=== PATIENT | female | born 1995 | race Caucasian/White ===

== ENCOUNTER 2018-07-25 22:38 | Emergency (ER) | payer OTHER ==
[~2018-07-25] VITALS: Ht 175.3 cm; Wt 86.6 kg
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
[2018-07-25] MEDS ORDERED: LACTATED RINGERS 1,000 ML IV ONE (22:54)
[2018-07-25] MEDS ORDERED: ONDANSETRON 4 MG/2 ML (SDV) Z0FRAN IVP ONE (23:00)
[2018-07-25 23:25] LABS: BASOPHILS % (AUTO) 0 % (0-10); EOSINOPHILS % (AUTO) 1 % (0-10); HEMATOCRIT 36 % (35-52); HEMOGLOBIN 12.8 G/DL (11.5-16.0); LYMPHOCYTES % (AUTO) 22 % (12-44); MEAN CORPUSCULAR HEMOGLOBIN 30 PG (25-34); MEAN CORPUSCULAR HGB CONC 35 G/DL (32-36); MEAN CORPUSCULAR VOLUME 86 FL (80-99); MEAN PLATELET VOLUME 9.4 FL (7.4-10.4); MONOCYTES % (AUTO) 7 % (0-12); NEUTROPHILS % (AUTO) 70 % (42-75); PLATELET COUNT 297 10^3/uL (130-400); RED CELL DISTRIBUTION WIDTH 12.7 % (10.0-14.5); WHITE BLOOD COUNT 12.2 10^3/uL (4.3-11.0)
[2018-07-25 23:26] LABS: EOSINOPHILS # (AUTO) 0.1 10^3/uL (0.0-0.3); LYMPHOCYTES # (AUTO) 2.7 X 10^3 (1.0-4.0); MONOCYTES # (AUTO) 0.8 X 10^3 (0.0-1.0); NEUTROPHILS # (AUTO) 8.5 X 10^3 (1.8-7.8)
--- NOTE | 2018-07-25 23:36 | ED Abdominal Pain ---
General Chief Complaint: Abdominal/GI Problems Stated Complaint: STOMACH PAIN--18 WEEKS Nursing Triage Note: Pt arrived by private vehicle with significant other with chief complaint of abdominal pain. Pt stated that it started 2 days ago. Pain was epigastric pain (middle upper quadrant). Pt has vomiting, nausea with no diarrhea. Pt stated she had been on her feet all day at work ([employer] Pt is 18 weeks . Sepsis Screen: No Definite Risk Source of Information: Patient History of Present Illness Date Seen by Provider: Jul 25, 2018 Time Seen by Provider: 22:45 Initial Comments 23-year-old female presents with some epigastric crampingpain for about 2 days. She also has some nausea and vomiting. She is passing 18 weeks . Reports that she is having a hard time keeping anything down. She denies any diarrhea, fevers, chills or other systemic complaints. She does not have a vaginal playing, abnormal vaginal bleeding or discomfort. Allergies and Home Medications Allergies Coded Allergies: No Known Drug Allergies (Unverified , 07/25/18) Patient Home Medication List Home Medication List Reviewed: Yes Review of Systems Review of Systems Constitutional: No chills, No fever EENTM: No Symptoms Reported Respiratory: No Symptoms Reported; Denies Cough Cardiovascular: Denies Chest Pain Gastrointestinal: Abdominal Pain (epigastric ), Nausea, Vomiting Genitourinary: See HPI Musculoskeletal: see HPI Skin: see HPI Psychiatric/Neurological: See HPI Endocrine: See HPI Past Ddsgrxi-Qrkaxw-Zqbien Hx Past Med/Social Hx: Reviewed Nursing Past Med/Soc Hx Patient Social History Alcohol Use: Denies Use Recreational Drug Use: No Smoking Status: Never a Smoker 2nd Hand Smoke Exposure: No Recent Foreign Travel: No Contact w/Someone Who Travel: No Recent Infectious Disease Expo: No Recent Hopitalizations: No Physical Abuse: No Sexual Abuse: No Mistreated: No Fear: No Seasonal Allergies Seasonal Allergies: No Past Medical History Surgeries: No Respiratory: Yes Asthma Cardiac: No Neurological: No Last Menstrual Period: Mar 25, 2018 Genitourinary: No Gastrointestinal: No Musculoskeletal: No Endocrine: No HEENT: No Cancer: No Psychosocial: No Integumentary: No Blood Disorders: No Physical Exam Vital Signs Vital Signs - First Documented 07/25/18 22:57 Temp 98.2 Pulse 87 Resp 16 B/P (MAP) 138/79 (98) Pulse Ox 98 O2 Delivery Room Air Capillary Refill : Less Than 3 Seconds Height/Weight/BMI Height: 5'9.00" Weight: 191lbs. 0oz. 86.759630dk; BMI Method:Stated General Appearance: WD/WN, no apparent distress HEENT: PERRL/EOMI Neck: non-tender, full range of motion, supple Respiratory: chest non-tender Cardiovascular: regular rate, rhythm, no edema Gastrointestinal: soft; No distended, No guarding, No rebound; tenderness ( mild epigastric ) Extremities: normal range of motion, non-tender Neurologic/Psychiatric: window draper II-XII nml as tested, alert, oriented x 3 Progress/Results/Core Measures Results/Orders Lab Results Laboratory Tests Test 07/25/18 22:54 Range/Units White Blood Count 12.2 H 4.3-11.0 10^3/uL Red Blood Count 4.23 L 4.35-5.85 10^6/uL Hemoglobin 12.8 11.5-16.0 G/DL Hematocrit 36 35-52 % Mean Corpuscular Volume 86 80-99 FL Mean Corpuscular Hemoglobin 30 25-34 PG Mean Corpuscular Hemoglobin Concent 35 32-36 G/DL Red Cell Distribution Width 12.7 10.0-14.5 % Platelet Count 297 130-400 10^3/uL Mean Platelet Volume 9.4 7.4-10.4 FL Neutrophils (%) (Auto) 70 42-75 % Lymphocytes (%) (Auto) 22 12-44 % Monocytes (%) (Auto) 7 0-12 % Eosinophils (%) (Auto) 1 0-10 % Basophils (%) (Auto) 0 0-10 % Neutrophils # (Auto) 8.5 H 1.8-7.8 X 10^3 Lymphocytes # (Auto) 2.7 1.0-4.0 X 10^3 Monocytes # (Auto) 0.8 0.0-1.0 X 10^3 Eosinophils # (Auto) 0.1 0.0-0.3 10^3/uL Basophils # (Auto) 0.0 0.0-0.1 10^3/uL Sodium Level 137 135-145 MMOL/L Potassium Level 3.8 3.6-5.0 MMOL/L Chloride Level 102 98-107 MMOL/L Carbon Dioxide Level 24 21-32 MMOL/L Anion Gap 11 5-14 MMOL/L Blood Urea Nitrogen 7 7-18 MG/DL Creatinine 0.52 L 0.60-1.30 MG/DL Estimat Glomerular Filtration Rate > 60 BUN/Creatinine Ratio 13 Glucose Level 102 70-105 MG/DL Calcium Level 9.7 8.5-10.1 MG/DL Corrected Calcium 9.5 8.5-10.1 MG/DL Total Bilirubin 0.2 0.1-1.0 MG/DL Aspartate Amino Transf (AST/SGOT) 19 5-34 U/L Alanine Aminotransferase (ALT/SGPT) 13 0-55 U/L Alkaline Phosphatase 37 L 40-136 U/L Total Protein 7.4 6.4-8.2 GM/DL Albumin 4.3 3.2-4.5 GM/DL Lipase 43 8-78 U/L My Orders Orders - KIRA JAMES DO Comprehensive Metabolic Panel (07/25/18 22:54) Lipase (07/25/18 22:54) Saline Lock/Iv-Start (07/25/18 22:54) Cbc With Automated Diff (07/25/18 22:54) Lactated Ringers (Lr 1000 Ml Iv Solution (07/25/18 22:54) Ondansetron Injection (Zofran Injectio (07/25/18 23:00) Ua Culture If Indicated (07/25/18 23:58) Medications Given in ED Current Medications Medications Dose Ordered Sig/Eddie Route Start Time Stop Time Status Last Admin Dose Admin Lactated Ringer's 1,000 ml @ 0 mls/hr Q0M ONCE IV 07/25/18 22:54 07/25/18 22:57 DC 07/25/18 23:04 1,000 MLS/HR Ondansetron HCl 4 mg ONCE ONCE IVP 07/25/18 23:00 07/25/18 23:01 DC 07/25/18 23:04 4 MG Vital Signs/I&O 07/25/18 22:57 Temp 98.2 Pulse 87 Resp 16 B/P (MAP) 138/79 (98) Pulse Ox 98 O2 Delivery Room Air Blood Pressure Mean: 98 Progress Progress Note : Progress Note Patient is much improved following her fluids and Zofran. She denies having emesis while here in the ER. I will discharge her home with some Zofran. I recommend she follow up with her OB next week if symptoms do not improve. Patient discharged home in stable condition. Departure Impression Primary Impression: Nausea and vomiting Qualified Codes: R11.2 - Nausea with vomiting, unspecified Additional Impression: 18 weeks gestation of Disposition: HOME, SELF-CARE Condition: Stable Departure-Patient Inst. Referrals: ALONZO HERNANDEZ MD (PCP) Primary Care Physician Patient Instructions: Nausea and Vomiting of (DC) Scripts Ondansetron (Ondansetron Odt) 4 Mg Tab.rapdis 4 MG PO Q8H PRN for NAUSEA/VOMITING, #20 TAB Prov: KIRA JAMES DO 07/26/18 KIRA JAMES DO Jul 25, 2018 23:36
[2018-07-25 23:42] LABS: BUN/CREATININE RATIO 13; CALCIUM 9.7 MG/DL (8.5-10.1); CARBON DIOXIDE 24 MMOL/L (21-32); CHLORIDE 102 MMOL/L (98-107); CREATININE SERUM 0.52 MG/DL (0.60-1.30); GFR ESTIMATED > 60; GLUCOSE 102 MG/DL (70-105); POTASSIUM 3.8 MMOL/L (3.6-5.0); SODIUM 137 MMOL/L (135-145)
[2018-07-25 23:43] LABS: ALANINE AMINOTRANSFERASE 13 U/L (0-55); ALBUMIN 4.3 GM/DL (3.2-4.5); ALKALINE PHOSPHATASE 37 U/L (40-136); BILIRUBIN,TOTAL 0.2 MG/DL (0.1-1.0); LIPASE 43 U/L (8-78); TOTAL PROTEIN 7.4 GM/DL (6.4-8.2)
[2018-07-26 00:03] LABS: CLARITY,URINE CLEAR; COLOR,URINE YELLOW; PH,URINE 6.5 (5-9)
[2018-07-26 00:04] LABS: BILIRUBIN,URINE NEGATIVE (NEGATIVE); GLUCOSE, URINE (UA) NEGATIVE (NEGATIVE); KETONES,URINE NEGATIVE (NEGATIVE); LEUKOCYTE ESTERASE ,URINE TRACE (NEGATIVE); NITRITE,URINE NEGATIVE (NEGATIVE); PROTEIN,URINE NEGATIVE (NEGATIVE); UROBILINOGEN,URINE 0.2 MG/DL (NORMAL)
[2018-07-26] MEDS ORDERED: ONDA4TAB11 PO (00:04)
[2018-07-26 00:05] LABS: BACTERIA,URINE TRACE /HPF
[2018-07-26 00:24] VITALS: BP 119/71
== END 2018-07-26 00:24 | disposition home or self-care (01) ==
LOC: ER FS 22:45
DX: O21.9 Vomiting of pregnancy, unspecified (principal); O99.512 Diseases of the respiratory system complicating pregnancy, second trimester; J45.909 Unspecified asthma, uncomplicated; Z3A.18 18 weeks gestation of pregnancy
CPT/HCPCS: 36415; 80053; 81000; 83690; 85025

== ENCOUNTER → 2018-08-12 | Outpatient (CLI) | payer MEDICAID ==
[~2018-08-12] MED LIST: ONDA4TAB11 PO
--- NOTE | 2018-08-12 11:59 | Diagnostic Imaging Report ---
INDICATION: survey. TECHNIQUE: Multiple real-time grayscale images were obtained over the gravid uterus. COMPARISON: None FINDINGS: There is a single live fetus in a cephalic presentation. heart rate was recorded at 160 beats per minute. Placenta is anterior. Amniotic fluid volume is normal. Cervical length is 3.8 cm. survey demonstrates kidneys, bladder, and stomach to be unremarkable. The brain is unremarkable. There is a three-vessel cord. The insertion is limited in evaluation due to position. spine is unremarkable. Four-chamber heart view is somewhat limited due to position. Biometrical measurements are as follows: Biparietal 4.60 cm, age 20 weeks 0 days. Head circumference 18.07 cm, age 20 weeks 4 days. Abdominal circumference 14.39 cm, age 19 weeks 6 days. Femur length 3.32 cm, age 20 weeks 3 days. Sonographic estimate age: 20 weeks 2 days. Sonographic estimated date of delivery: 12/28/2018. Estimated Weight: 330 gm (+/- 48 gm). LMP percentile: 50%. heart rate: 160 beats per minute. number: 1 of 1. IMPRESSION: Single live IUP at 20 weeks 2 days gestational age. The estimated date of confinement sonographically is 12/28/2018. survey is unremarkable, although the cord insertion and four-chamber heart views are limited due to position and followup could be performed. Dictated by: Dictated on workstation # [id number]
== END ==
LOC: RAD 09:58
PROVIDERS: ATTEND Obstetrics & Gynecology
DX: Z36.89 Encounter for other specified antenatal screening (principal); Z3A.20 20 weeks gestation of pregnancy
CPT/HCPCS: 76805

== ENCOUNTER → 2018-10-21 | Outpatient (CLI) | payer MEDICAID ==
--- NOTE | 2018-10-21 16:39 | Diagnostic Imaging Report ---
INDICATION: Assessment during normal . Incomplete imaging of the anatomy on prior imaging. TECHNIQUE: Multiple, limited real-time grayscale images were obtained over the gravid uterus. COMPARISON: 08/12/2018 FINDINGS: Single viable intrauterine currently in cephalic presentation. Normal amount of amniotic fluid appears to be present, index 16.39 cm. Placenta anterior without evidence for previa. The four-chamber heart and cord insertion site are visualized at this followup study appearing unremarkable. Biometrical measurements were not performed on this study. heart rate: 152 beats per minute. number: 1 of 1. IMPRESSION: 1. Single viable intrauterine , currently in cephalic presentation. Followup imaging of the cardiac structures and cord insertion site have an unremarkable appearance. Dictated by: Dictated on workstation # [id number]
== END ==
LOC: RAD 14:02
PROVIDERS: ATTEND Obstetrics & Gynecology
DX: Z36.89 Encounter for other specified antenatal screening (principal); Z3A.00 Weeks of gestation of pregnancy not specified
CPT/HCPCS: 76816

== ENCOUNTER 2018-10-30 05:00 | Emergency (ER) | payer MEDICAID ==
[~2018-10-30] VITALS: Ht 172.7 cm; Wt 97.1 kg
--- OUTSIDE RECORDS SUMMARY | 2018-10-30 05:26 | XMS REPORT | Continuity of Care Document ---
Demographics Preferred Language Unknown Marital Status Unknown Muslim Affiliation Unknown Race Unknown Ethnic Group Unknown Author Organization Unknown Address Unknown Allergies Active Description Code Type Severity Reaction Onset Reported/Identified Relationship to Patient Clinical Status Yes No Known Drug Allergies [id number] Drug Allergy Unknown N/A 07/25/2018 Medications There is no data. Problems Date [...] RX) 08/12/2011 V25.49 CONTRACEPTION SURVEILLANCE (REPEAT RX) 07/26/2018 JAMES DO, KIRA L Ot J45.909 UNSPECIFIED ASTHMA, UNCOMPLICATED 07/26/2018 JAMES DO, KIRA L Ot O21.9 VOMITING OF , UNSPECIFIED 07/26/2018 JAMES DO, KIRA L Ot O26.892 OTH RELATED CONDITIONS, SECOND 07/26/2018 JAMES DO, KIRA L Ot O99.512 DISEASES OF THE RESP SYS COMP , 07/26/2018 JAMES DO, KIRA L Ot Z3A.18 18 WEEKS GESTATION OF 07/27/2018 JAMES DO, KIRA L Ot J45.909 UNSPECIFIED ASTHMA, UNCOMPLICATED 07/27/2018 JAMES DO, KIRA L Ot O21.9 VOMITING OF , UNSPECIFIED 07/27/2018 JAMES DO, KIRA L Ot O26.892 OTH RELATED CONDITIONS, SECOND 07/27/2018 JAMES DODAMARISKIRA L Ot O99.512 DISEASES OF THE RESP SYS COMP , 07/27/2018 JAMES DOMICHELLER L Ot Z3A.18 18 WEEKS GESTATION OF 08/14/2018 DESAI DO, KAUSHAL C Ot Z36.89 ENCOUNTER FOR OTHER SPECIFIED 08/14/2018 DESAI DO, KAUSHAL C Ot Z3A.20 20 WEEKS GESTATION OF 09/21/2018 DESAI DO, KAUSHAL C Ot Z36.89 ENCOUNTER FOR OTHER SPECIFIED 09/21/2018 DESAI DO, KAUSHAL C Ot Z3A.20 20 WEEKS GESTATION OF 10/22/2018 DESAI DO, KAUSHAL C Ot Z36.89 ENCOUNTER FOR OTHER SPECIFIED 10/22/2018 DESAI DO, KAUSHAL C Ot Z3A.00 WEEKS OF GESTATION OF NOT SPEC 10/26/2018 DESAI DO, KAUSHAL C Ot Z36.89 ENCOUNTER FOR OTHER SPECIFIED 10/26/2018 DESAI DO, KAUSHAL C Ot Z3A.00 WEEKS OF GESTATION OF NOT SPEC Procedures Code Description [place] [address] URINE TEST (IN-HOUSE) 04/27/2012 22265 THERAPUTIC INJ SQ/IM 04/27/2012 J1055 DEPO-PROVERA INJ 150 MG 04/27/2012 07038 URINE TEST (IN-HOUSE) 07/14/2012 J1055 DEPO-PROVERA INJ 150 MG 07/14/2012 42346 THERAPUTIC INJ SQ/IM 07/14/2012 Results Test Result Range Complete urinalysis with reflex to culture - 07/25/18 22:50 Urine color determination YELLOW NRG Urine clarity determination CLEAR NRG Urine pH measurement by test strip 6.5 5-9 Specific gravity of urine by test strip 1.010 1.016-1.022 Urine protein assay by test strip, semi-quantitative NEGATIVE NEGATIVE Urine glucose detection by automated test strip NEGATIVE NEGATIVE Erythrocytes detection in urine sediment by light microscopy NEGATIVE NEGATIVE Urine ketones detection by automated test strip NEGATIVE NEGATIVE Urine nitrite detection by test strip NEGATIVE NEGATIVE Urine total bilirubin detection by test strip NEGATIVE NEGATIVE Urine urobilinogen measurement by automated test strip (mass/volume) 0.2 mg/dL NORMAL Urine leukocyte esterase detection by dipstick TRACE NEGATIVE Automated urine sediment erythrocyte count by microscopy (number/high power field) NONE NRG Automated urine sediment leukocyte count by microscopy (number/high power field) [HPF] NRG Bacteria detection in urine sediment by light microscopy TRACE NRG Squamous epithelial cells detection in urine sediment by light microscopy 10-25 NRG Crystals detection in urine sediment by light microscopy NONE NRG Casts detection in urine sediment by light microscopy NONE NRG Mucus detection in urine sediment by light microscopy NEGATIVE NRG Complete urinalysis with reflex to culture NO NRG Complete blood count (CBC) with automated white blood cell (WBC) differential - 07/25/18 22:54 Blood leukocytes automated count (number/volume) 12.2 10*3/uL 4.3-11.0 Blood erythrocytes automated count (number/volume) 4.23 10*6/uL 4.35-5.85 Venous blood hemoglobin measurement (mass/volume) 12.8 g/dL 11.5-16.0 Blood hematocrit (volume fraction) 36 % 35-52 Automated erythrocyte mean corpuscular volume 86 [foz_us] 80-99 Automated erythrocyte mean corpuscular hemoglobin (mass per erythrocyte) 30 pg 25-34 Automated erythrocyte mean corpuscular hemoglobin concentration measurement (mass/volume) 35 g/dL 32-36 Automated erythrocyte distribution width ratio 12.7 % 10.0- 14.5 Automated blood platelet count (count/volume) 297 10*3/uL 130-400 Automated blood platelet mean volume measurement 9.4 [foz_us] 7.4-10.4 Automated blood neutrophils/100 leukocytes 70 % 42-75 Automated blood lymphocytes/100 leukocytes 22 % 12-44 Blood monocytes/100 leukocytes 7 % 0-12 Automated blood eosinophils/100 leukocytes 1 % 0-10 Automated blood basophils/100 leukocytes 0 % 0-10 Blood neutrophils automated count (number/volume) 8.5 10*3 1.8-7.8 Blood lymphocytes automated count (number/volume) 2.7 10*3 1.0-4.0 Blood monocytes automated count (number/volume) 0.8 10*3 0.0- 1.0 Automated eosinophil count 0.1 10*3/uL 0.0-0.3 Automated blood basophil count (count/volume) 0.0 10*3/uL 0.0-0.1 Comprehensive metabolic panel - 07/25/18 22:54 Serum or plasma sodium measurement (moles/volume) 137 mmol/L 135-145 Serum or plasma potassium measurement (moles/volume) 3.8 mmol/L 3.6-5.0 Serum or plasma chloride measurement (moles/volume) 102 mmol/L 98-107 Carbon dioxide 24 mmol/L 21-32 Serum or plasma anion gap determination (moles/volume) 11 mmol/L 5-14 Serum or plasma urea nitrogen measurement (mass/volume) 7 mg/dL 7-18 Serum or plasma creatinine measurement (mass/volume) 0.52 mg/dL 0.60-1.30 Serum or plasma urea nitrogen/creatinine mass ratio 13 NRG Serum or plasma creatinine measurement with calculation of estimated glomerular filtration rate > NRG Serum or plasma glucose measurement (mass/volume) 102 mg/dL 70-105 Serum or plasma calcium measurement (mass/volume) 9.7 mg/dL 8.5-10.1 Serum or plasma total bilirubin measurement (mass/volume) 0.2 mg/dL 0.1-1.0 Serum or plasma alkaline phosphatase measurement (enzymatic activity/volume) 37 U/L 40-136 Serum or plasma aspartate aminotransferase measurement (enzymatic activity/volume) 19 U/L 5-34 Serum or plasma alanine aminotransferase measurement (enzymatic activity/volume) 13 U/L 0-55 Serum or plasma protein measurement (mass/volume) 7.4 g/dL 6.4-8.2 Serum or plasma albumin measurement (mass/volume) 4.3 g/dL 3.2-4.5 CALCIUM CORRECTED 9.5 mg/dL 8.5-10.1 Lipase - 07/25/18 22:54 Lipase 43 U/L 8-78 Encounters ACCT No. Visit Date/Time Discharge Status Pt. Type Provider Facility Loc./Unit Complaint [id number] 07/14/2012 16:16:00 07/14/2012 23:59:59 CLS Outpatient [id number] 04/27/2012 07:59:00 04/27/2012 23:59:59 CLS Outpatient [id number] 10/21/2018 14:02:00 10/21/2018 23:59:59 CLS Outpatient KAUSHAL DESAI DO [facility] RAD EVALUATE ANATOMY NOT SEEN ON PRIOR SONOGRAM [id number] 08/12/2018 09:58:00 08/12/2018 23:59:59 CLS Outpatient KAUSHAL DESAI DO [facility] RAD FETUS PRESENT IN SECOND TRIMESTER [id number] 07/25/2018 22:45:00 07/26/2018 00:24:00 DIS Emergency KIRA JAMES DO [facility] ER FS STOMACH PAIN--18 WEEKS
--- OUTSIDE RECORDS SUMMARY | 2018-10-30 05:26 | XMS REPORT ---
Author Author Migration, Doctor Organization [facility] Address Unknown Phone Unavailable Care Team Providers Care Sailing Officer Name Role Phone Migration, Doctor Unavailable Unavailable PROBLEMS Type Condition ICD9-CM Code ZQN68-CQ Code Onset Dates Condition Status SNOMED Code Problem Surveillance of other previously prescribed contraceptive method V25.49 Active 648591958 Problem Abdominal pain, other specified site 789.09 Active 20312140 ALLERGIES No Information ENCOUNTERS Encounter Location Date Diagnosis [facility] [id number] [place] [phone] Aug, [facility] [id number] [place] [phone] Aug, [facility] [id number] [place] [phone] Jun, [facility] [id number] [place] [phone] Apr, [facility] [id number] [place] [phone] Apr, [facility] [id number] [place] [address] Jan, [facility] [id number] [place] [phone] Oct, [facility] [id number] [place] [phone] Jul, [facility] [id number] [place] [phone] Jun, [facility] [id number], [place] [address] Nov, IMMUNIZATIONS No Known Immunizations SOCIAL HISTORY Never Assessed REASON FOR VISIT EMR-[facility] PLAN OF CARE VITAL SIGNS MEDICATIONS Medication Instructions Dosage Frequency Start Date End Date Duration Status Ibuprofen 600 mg take 1 tablet (600 mg) by oral route 3 times per day with food Jun, Active RESULTS No Results PROCEDURES No Known procedures INSTRUCTIONS MEDICATIONS ADMINISTERED No Known Medications
--- OUTSIDE RECORDS SUMMARY | 2018-10-30 05:26 | XMS REPORT ---
Author Author Migration, Doctor Organization [facility] Address Unknown Phone Unavailable Care Team Providers Care Macroeconomics Professor Name Role Phone Migration, Doctor Unavailable Unavailable PROBLEMS Type Condition ICD9-CM Code [id number] Code Onset Dates Condition Status SNOMED Code Problem Surveillance of other previously prescribed contraceptive method V25.49 Active 101593814 Problem Abdominal pain, other specified site 789.09 Active 49194046 ALLERGIES No Information ENCOUNTERS Encounter Location Date Diagnosis [facility] [id number] [place] [phone] Aug, [facility] [id number] [place] [phone] Aug, [facility] [id number] [place] [phone] Jun, [facility] [id number] [place] [phone] Apr, [facility] [id number] [place] [phone] Apr, [facility] [address] [address] Jan, [facility] [id number] [place] [phone] Oct, [facility] [id number] [place] [phone] Jul, [facility] [id number] [place] [phone] Jun, [facility] [id number] [address] Nov, IMMUNIZATIONS No Known Immunizations SOCIAL HISTORY Never Assessed REASON FOR VISIT [place] [place] PLAN OF CARE VITAL SIGNS MEDICATIONS Unknown Medications RESULTS No Results PROCEDURES No Known procedures INSTRUCTIONS MEDICATIONS ADMINISTERED No Known Medications
--- NOTE | 2018-10-30 05:28 | ED GU-Female ---
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 Patient states that her stomach does get tight and it radiates to her back at times. Patient is unable to tell a specific amount of time between contractions. Patient rates her pain at a 7. Nursing Sepsis Screen: No Definite Risk Source: patient, family, RN notes reviewed Exam Limitations: no limitations History of Present Illness Date Seen by Provider: Oct 30, 2018 Time Seen by Provider: 05:15 Initial Comments Patient presents c/ c/o worsening intermittent pelvic pressure/pain x 2 days. States she is 31 weeks, 2 days . . OB is [facility] in [place]. No discharge, or bleeding. Rates her pain 7/10. Timing/Duration: other (for 2 days) Severity/Quality: moderate (7/10) Location: vaginal Radiation: back Activities at Onset: none Prior Genitourinary Problems: none Modifying Factors: Improves With Other (none) Associated Symptoms: denies symptoms (x/ as noted.) Allergies and Home Medications Allergies Coded Allergies: No Known Drug Allergies (Unverified , 07/25/18) Home Medications Ondansetron 4 Mg Tab.rapdis, 4 MG PO Q8H PRN for NAUSEA/VOMITING Prescribed by: KIRA JAMES on 07/26/18 0004 Patient Home Medication List Home Medication List Reviewed: Yes Review of Systems Review of Systems Constitutional: see HPI Genitourinary: other (pelvic pain/pressure) : Yes All Other Systemes Reviewed Negative Unless Noted: Yes (Negative excepted noted.) Past Ubshwid-Qxwrlr-Cguhhm Hx Patient Social History Alcohol Use: Denies Use Recreational Drug Use: No Smoking Status: Never a Smoker 2nd Hand Smoke Exposure: No Recent Foreign Travel: No Contact w/Someone Who Travel: No Recent Infectious Disease Expo: No Recent Hopitalizations: No Physical Abuse: No Sexual Abuse: No Mistreated: No Fear: No Seasonal Allergies Seasonal Allergies: No Past Medical History Surgeries: No Respiratory: Yes Asthma Cardiac: No Neurological: No Genitourinary: No Gastrointestinal: No Musculoskeletal: No Endocrine: No HEENT: No Cancer: No Psychosocial: No Integumentary: No Blood Disorders: No Physical Exam Vital Signs Vital Signs - First Documented 10/30/18 05:05 Temp 97.8 Pulse 92 Resp 20 B/P (MAP) 137/85 (102) Pulse Ox 97 O2 Delivery Room Air Capillary Refill : Less Than 3 Seconds Height, Weight, BMI Height: 5'8.00" Weight: 214lbs. 0oz. 97.202917sm; BMI Method:Stated General Appearance: WD/WN, obese Cardiovascular: regular rate, rhythm Respiratory: no respiratory distress Pelvic: normal external exam; No discharge, No vaginal bleeding; other (Cervix on inspection is high, thick, and closed. No discharge or blood noted. No signs of impending delivery. ) Neurologic/Psychiatric: no motor/sensory deficits, alert, oriented x 3, depressed affect Skin: warm/dry Progress/Results/Core Measures Suspected Sepsis Recent Fever Within 48 Hours: No Infection Criteria Present: None New/Unexplained Altered Menta: No Sepsis Screen: No Definite Risk SIRS Temperature:97.8 Pulse: 92 Respiratory Rate: 20 Blood Pressure 137 /85 Mean: 102 Results/Orders Lab Results Laboratory Tests Test 10/30/18 05:06 Range/Units Urine Color YELLOW Urine Clarity CLEAR Urine pH 7.5 5-9 Urine Specific [place] 1.010 L 1.016-1.022 Urine Protein NEGATIVE NEGATIVE Urine Glucose (UA) NEGATIVE NEGATIVE Urine Ketones NEGATIVE NEGATIVE Urine Nitrite NEGATIVE NEGATIVE Urine Bilirubin NEGATIVE NEGATIVE Urine Urobilinogen 0.2 NORMAL MG/DL Urine Leukocyte Esterase TRACE H NEGATIVE Urine RBC (Auto) NEGATIVE NEGATIVE Urine RBC RARE /HPF Urine WBC 10-25 H /HPF Urine Squamous Epithelial Cells 10-25 H /HPF Urine Crystals NONE /LPF Urine Bacteria FEW H /HPF Urine Casts NONE /LPF Urine Mucus NEGATIVE /LPF Urine Culture Indicated YES My Orders Orders - JANICE GOMEZ DO Ua Culture If Indicated (10/30/18 05:04) Urine Culture (10/30/18 05:06) Vital Signs/I&O 10/30/18 05:05 Temp 97.8 Pulse 92 Resp 20 B/P (MAP) 137/85 (102) Pulse Ox 97 O2 Delivery Room Air Capillary Refill : Less Than 3 Seconds Blood Pressure Mean: 102 Progress Note : Progress Note Discussed patient c/ Dr. Hernandez, OB health and physical education teacher @ [facility]. Recommended discharging the patient and have her come down to [place] to be further evaluated in the OB department. Has a ride. Departure Impression Primary Impression: with 31 to 32 completed weeks gestation Additional Impressions: UTI (urinary tract infection) Suspected Frederick Issa Disposition: 01 HOME, SELF-CARE Condition: Stable Departure-Patient Inst. Decision time for Depature: 05:52 Referrals: ALONZO HERNANDEZ MD (PCP/Family) Primary Care Physician Add. Discharge Instructions: All discharge instructions reviewed with patient and/or family. Voiced understanding. RECOMMEND PROCEEDING DOWN TO [facility] TO THE OB DEPARTMENT FOR FURTHER EVALUATION. JANICE GOMEZ DO Oct 30, 2018 05:28
[2018-10-30 05:40] LABS: CLARITY,URINE CLEAR; COLOR,URINE YELLOW; GLUCOSE, URINE (UA) NEGATIVE (NEGATIVE); KETONES,URINE NEGATIVE (NEGATIVE); NITRITE,URINE NEGATIVE (NEGATIVE); PH,URINE 7.5 (5-9); PROTEIN,URINE NEGATIVE (NEGATIVE)
[2018-10-30 05:41] LABS: BACTERIA,URINE FEW /HPF; BILIRUBIN,URINE NEGATIVE (NEGATIVE); LEUKOCYTE ESTERASE ,URINE TRACE (NEGATIVE); RBC,URINE RARE /HPF; UROBILINOGEN,URINE 0.2 MG/DL (NORMAL)
[2018-10-30 05:55] VITALS: BP 137/85
== END 2018-10-30 05:55 | disposition home or self-care (01) ==
LOC: EDUNIT# 05:00 → ER FS 05:03
DX: O23.43 Unspecified infection of urinary tract in pregnancy, third trimester (principal); O99.513 Diseases of the respiratory system complicating pregnancy, third trimester; J45.909 Unspecified asthma, uncomplicated; Z3A.31 31 weeks gestation of pregnancy
CPT/HCPCS: 81000; 87077; 87088; 87186; 99284

== ENCOUNTER 2018-11-29 09:46 | Outpatient (CLI) | payer MEDICAID ==
[~2018-11-29] VITALS: Ht 172.7 cm; Wt 100.8 kg
--- NOTE | 2018-11-29 09:28 | NUR ---
BALAJI PARKS presented to unit from Home, accompanied by family, with c/o HEADACHE,N/V,DECREASED MOVEMENT. BALAJI PARKS weighed, gowned, voided, and to bed. EFHM and TOCO applied, VS taken. BALAJI PARKS oriented to bed controls, call light, TV, heat, and A/C controls.
[2018-11-29 09:45] VITALS: BP 117/75
[2018-11-29 10:14] LABS: BILIRUBIN,URINE NEGATIVE (NEGATIVE); CLARITY,URINE CLEAR; COLOR,URINE YELLOW; GLUCOSE, URINE (UA) NEGATIVE (NEGATIVE); KETONES,URINE NEGATIVE (NEGATIVE); LEUKOCYTE ESTERASE ,URINE 3+ (NEGATIVE); NITRITE,URINE NEGATIVE (NEGATIVE); PH,URINE 6.5 (5-9); PROTEIN,URINE 2+ (NEGATIVE); UROBILINOGEN,URINE NORMAL (NORMAL)
[2018-11-29 10:15] VITALS: BP 111/66
[2018-11-29] MEDS ORDERED: PNV11TAB5 PO (10:19)
[2018-11-29] MEDS ORDERED: ACET-2267 PO (10:19)
[2018-11-29 10:28] LABS: BACTERIA,URINE MODERATE /HPF; SQUAMOUS EPITHELIAL CELL,UR 25-50 /HPF
--- NOTE | 2018-11-29 10:31 | NUR ---
Dr. Sweet notified of patient's arrival, complaints, EFM tracing, and UA results. New orders received.
[2018-11-29] MEDS ORDERED: ONDANSETRON 4 MG/2 ML (SDV) Z0FRAN IVP PRN (10:45)
[2018-11-29] MEDS ORDERED: D5 LR IV SOLUTION 1,000 ML IV SCH (10:45)
[2018-11-29] MEDS ORDERED: ACET/BUTAL/CAFF (FIORICET) TAB PO PRN ×2 (10:45→15:45)
[2018-11-29] MEDS ORDERED: fentaNYL INJECTION 100 MCG/2 ML AMP ONE ×2 (11:57→14:21)
--- NOTE | 2018-11-29 11:58 | NUR ---
Dr. Sweet updated on patient's status, new orders received.
[2018-11-29] MEDS ORDERED: PROCHLORPERAZINE 25 MG (COMPAZINE) SUPP PR NR (12:00)
[2018-11-29] MEDS ORDERED: fentaNYL INJECTION 100 MCG/2 ML AMP IVP ONE ×2 (12:00→14:30)
[2018-11-29 13:45] VITALS: BP 115/62
--- NOTE | 2018-11-29 15:33 | NUR ---
Dr. Sweet updated on patient's status. New orders received.
[2018-11-29] MEDS ORDERED: BUTA1TAB9 PO (15:39)
--- NOTE | 2018-11-29 15:57 | NUR ---
IV DC'd, tip intact.
--- NOTE | 2018-11-29 16:02 | NUR ---
Discharge instructions and medications reviewed with patient both written and verbally. Patient verbalizes understanding and questions answered.
--- NOTE | 2018-11-29 16:06 | NUR ---
Patient discharged at this time and ambulated from the unit accompanied by family. No signs or symptoms of distress noted.
--- NOTE | 2018-12-10 15:16 | Physician Query-Final Dx ---
CARA CLAYTON 12/10/18 1516: Clinic Account Progress/Dx Physician Query: Please give diagnosis Need dx and weeks of gestation Date of Service Nov 29, 2018 at 09:46 JEZ DREW DO 12/14/18 0633: Clinic Account Progress/Dx Physician Query: Please give diagnosis (Intrauterine at 35 4/7 weeks 2. Pelvic Pain 3. Threatened Labor) Date of Service December 10, 2018 DIAGNOSIS: Diagnosis Intrauterine at 35 4/7 weeks 2. Pelvic Pain 3. Threatened Labor Progress Note: Not physically seen. CARA Portillo Dec 10, 2018 15:16 JEZ DREW DO Dec 14, 2018 06:33
== END 2018-11-29 16:06 | disposition home or self-care (01) ==
LOC: LDRP 09:46 → WSo 09:46
PROVIDERS: ATTEND Obstetrics & Gynecology
DX: O47.03 False labor before 37 completed weeks of gestation, third trimester (principal); Z3A.35 35 weeks gestation of pregnancy
CPT/HCPCS: 81000; 87088; 96361; 96374; 96375; 96376; 99213

== ENCOUNTER 2018-12-01 00:21 | Outpatient (CLI) | payer MEDICAID ==
[~2018-12-01] VITALS: Ht 172.7 cm; Wt 102.6 kg
[~2018-12-01 00:21] MED LIST changes: +ACET-2267 PO; +BUTA1TAB9 PO; +PNV11TAB5 PO
--- NOTE | 2018-12-01 00:30 | NUR ---
BALAJI PARKS presented to unit via WC from ED, accompanied by family, with c/o LOWER BACK PAIN & PRESSURE,FLUID LEAKING. BALAJI PARKS weighed, gowned, voided, and to bed. EFHM and TOCO applied, VS taken. BALAJI PARKS oriented to bed controls, call light, TV, heat, and A/C controls.
[2018-12-01 00:40] VITALS: BP 131/76
--- NOTE | 2018-12-01 01:16 | NUR ---
Discharge instructions discussed with pt and pt's family. No questions or concerns voiced. Signature sheet signed, placed on chart. Offered wheelchair, denied per pt. Pt ambulating off unit to private vehicle with family at side. No signs of distress noted.
--- NOTE | 2018-12-10 14:56 | Physician Query-Final Dx ---
CARA CLAYTON 12/10/18 1456: Clinic Account Progress/Dx Physician Query: Please give diagnosis Need dx and weeks of gestation Date of Service Dec 01, 2018 at 00:21 GREGG FREEDMAN MD 12/10/18 1521: Clinic Account Progress/Dx DIAGNOSIS: Diagnosis 35 weeks and 6 days with false labor Progress Note: false labor CARA CLAYTON Dec 10, 2018 14:56 GREGG FREEDMAN MD Dec 10, 2018 15:21
== END 2018-12-01 01:16 | disposition home or self-care (01) ==
LOC: WSo 00:21 → LDRP 00:23 → WSo 01:16
PROVIDERS: ATTEND Obstetrics & Gynecology
DX: O47.03 False labor before 37 completed weeks of gestation, third trimester (principal); Z3A.35 35 weeks gestation of pregnancy
CPT/HCPCS: 99212

== ENCOUNTER 2018-12-04 01:53 | Outpatient (CLI) | payer MEDICAID ==
[~2018-12-04] VITALS: Ht 172.7 cm; Wt 103.1 kg
--- NOTE | 2018-12-04 02:00 | NUR ---
BALAJI PARKS presented to unit via wheelchair from ED, accompanied by family, with c/o POSS WATER BROKE. BALAJI PARKS weighed, gowned, voided, and to bed. EFHM and TOCO applied, VS taken. BALAJI PARKS oriented to bed controls, call light, TV, heat, and A/C controls.
[2018-12-04 02:18] VITALS: BP 133/89
--- NOTE | 2018-12-04 02:38 | NUR ---
reactive NST, FHR 130 with accels noted, 1 UC noted in the hour NST. 1 variable noted with no significants to uterine activity. Pt resting comfortably and Dr [facility] called with report
--- NOTE | 2018-12-04 02:41 | NUR ---
Pt resting in bed with mother at bedside. Labor s/s education given to both mother and pt. Pt drinking water at this time with no co of pain. Mother stated that when she woke she felt a ripping sensation in the vagina. Pain is gone now but that with the fluid they were concerned and came to hospital.
[2018-12-04 03:16] VITALS: BP 133/89
--- NOTE | 2018-12-10 14:57 | Physician Query-Final Dx ---
CARA CLAYTON 12/10/18 1457: Clinic Account Progress/Dx Physician Query: Please give diagnosis Need dx and weeks of gestation Date of Service Dec 04, 2018 at 01:53 KAUSHAL DESAI DO 12/16/18 1856: Clinic Account Progress/Dx DIAGNOSIS: Diagnosis 35 week gestation rupture of membranes ruled out vaginal pain CARA CLAYTON Dec 10, 2018 14:57 KAUSHAL DESAI DO Dec 16, 2018 18:56
[2018-12-16] MEDS ORDERED: CEPH250C PO (18:48)
[2018-12-16] MEDS ORDERED: ACET-77 PO (18:48)
[2018-12-16] MEDS ORDERED: IBUP-844 PO (18:48)
== END 2018-12-04 03:20 | disposition home or self-care (01) ==
LOC: WSo 01:53 → LDRP 01:54 → WSo 03:20
PROVIDERS: ATTEND Obstetrics & Gynecology
DX: O99.89 Other specified diseases and conditions complicating pregnancy, childbirth and the puerperium (principal); R10.2 Pelvic and perineal pain; Z3A.35 35 weeks gestation of pregnancy
CPT/HCPCS: 99214

== ENCOUNTER 2018-12-13 22:11 | Outpatient (CLI) | payer MEDICAID ==
[~2018-12-13] VITALS: Ht 172.7 cm; Wt 105.5 kg
--- NOTE | 2018-12-13 22:15 | NUR ---
BALAJI PARKS presented to unit via ambulatory from ED, accompanied by s/o, with c/o CONTRACTIONS. BALAJI PARKS weighed, gowned, voided, and to bed. EFHM and TOCO applied, VS taken. BALAJI PARKS oriented to bed controls, call light, TV, heat, and A/C controls.
[2018-12-13 22:36] LABS: BILIRUBIN,URINE NEGATIVE (NEGATIVE); CLARITY,URINE CLEAR; COLOR,URINE YELLOW; GLUCOSE, URINE (UA) NEGATIVE (NEGATIVE); KETONES,URINE NEGATIVE (NEGATIVE); LEUKOCYTE ESTERASE ,URINE 1+ (NEGATIVE); NITRITE,URINE NEGATIVE (NEGATIVE); PH,URINE 7 (5-9); PROTEIN,URINE NEGATIVE (NEGATIVE); UROBILINOGEN,URINE NORMAL (NORMAL)
[2018-12-13 22:57] LABS: BACTERIA,URINE TRACE /HPF
--- NOTE | 2018-12-13 23:10 | NUR ---
sve performed. no cervical change noted.
--- NOTE | 2018-12-13 23:32 | NUR ---
Discharge instructions verbalized with pt. labor precautions given. pt dc'd home with s/o and family at side.
== END 2018-12-13 23:32 | disposition home or self-care (01) ==
LOC: LDRP 22:11 → WSo 22:11
PROVIDERS: ATTEND Obstetrics & Gynecology
DX: O62.9 Abnormality of forces of labor, unspecified (principal); Z3A.38 38 weeks gestation of pregnancy
CPT/HCPCS: 81000; 87077; 87088; 87186; 99213

== ENCOUNTER 2018-12-15 18:40 | Inpatient (IN) | payer MEDICAID ==
[2018-12-15] VITALS (10 sets, daily range): BP systolic 120–142; BP diastolic 66–84
[~2018-12-15] VITALS: Ht 172.7 cm; Wt 104.9 kg
--- NOTE | 2018-12-15 18:40 | NUR ---
BALAJI PARKS presented to unit via ambulation from home, accompanied by family, for INDUCTION. BALAJI PARKS weighed, gowned, voided, and to bed. EFHM and TOCO applied, VS taken. BALAJI PARKS oriented to bed controls, call light, TV, heat, and A/C controls.
--- OUTSIDE RECORDS SUMMARY | 2018-12-15 18:50 | XMS REPORT | Continuity of Care Document ---
Demographics Preferred Language Unknown Marital Status Unknown Confucianist Affiliation Unknown Race Unknown Ethnic Group Unknown Author Organization Unknown Address Unknown Allergies Active Description Code Type Severity Reaction Onset Reported/Identified Relationship to Patient Clinical Status Yes No Known Drug Allergies [id number] Drug Allergy Unknown N/A 07/25/2018 Medications There [...] O26.892 OTH RELATED CONDITIONS, SECOND 07/27/2018 JAMES DO, KIRA L Ot O99.512 DISEASES OF THE RESP SYS COMP , 07/27/2018 JAMES DO, KIRA L Ot Z3A.18 18 WEEKS GESTATION OF 08/14/2018 DESAI DOLOBITOA C Ot Z36.89 ENCOUNTER FOR OTHER SPECIFIED 08/14/2018 DESAI DO, KAUSHLA C Ot Z3A.20 20 WEEKS GESTATION OF 09/21/2018 DESAI DO, KAUSHAL C Ot Z36.89 ENCOUNTER FOR OTHER SPECIFIED 09/21/2018 DESAI DO, KAUSHAL C Ot Z3A.20 20 WEEKS GESTATION OF 10/22/2018 DESAI DO, KAUSHAL C Ot Z36.89 ENCOUNTER FOR OTHER SPECIFIED 10/22/2018 DESAI DO, KAUSHAL C Ot Z3A.00 WEEKS OF GESTATION OF NOT SPEC 10/26/2018 DESAI DO KAUSHAL C Ot Z36.89 ENCOUNTER FOR OTHER SPECIFIED 10/26/2018 DESAI DO KAUSHAL C Ot Z3A.00 WEEKS OF GESTATION OF NOT SPEC 10/30/2018 JANICE GOMEZ DO, Ot J45.909 UNSPECIFIED ASTHMA, UNCOMPLICATED 10/30/2018 JANICE GOMEZ DO, Ot O23.43 UNSP INFCT OF URINARY TRACT IN 10/30/2018 JANICE GOMEZ DO, Ot O26.893 OTH RELATED CONDITIONS, THIRD 10/30/2018 JANICE GOMEZ DO, Ot O99.513 DISEASES OF THE RESP SYS COMP , 10/30/2018 JANICE GOMEZ DO, Ot Z3A.31 31 WEEKS GESTATION OF 10/30/2018 KAUSHAL DESAI DO Ot A08.4 VIRAL INTESTINAL INFECTION, UNSPECIFIED 10/30/2018 LLOYD DOLOBITOA C Ot O99.89 OTH DISEASES AND CONDITIONS COMPL PREG/C 10/30/2018 LLOYD DOKAUSHAL Ot Z3A.31 31 WEEKS GESTATION OF 11/03/2018 JANICE GOMEZ DO, Ot J45.909 UNSPECIFIED ASTHMA, UNCOMPLICATED 11/03/2018 JANICE GOMEZ DO Ot O23.43 UNSP INFCT OF URINARY TRACT IN 11/03/2018 JANICE GOMEZ DO Ot O26.893 OTH RELATED CONDITIONS, THIRD 11/03/2018 JANICE GOMEZ DO Ot O99.513 DISEASES OF THE RESP SYS COMP , 11/03/2018 JANICE GOMEZ DO Ot Z3A.31 31 WEEKS GESTATION OF 11/10/2018 LLOYD OLIVAS KAUSHAL C Ot Z36.89 ENCOUNTER FOR OTHER SPECIFIED 11/10/2018 LLOYD OLIVAS KAUSHAL C Ot Z3A.00 WEEKS OF GESTATION OF NOT SPEC 11/16/2018 LLOYD OLIVAS KAUSHAL C Ot A08.4 VIRAL INTESTINAL INFECTION, UNSPECIFIED 11/16/2018 LLOYD OLIVAS KAUSHAL C Ot O99.89 OTH DISEASES AND CONDITIONS COMPL PREG/C 11/16/2018 LLOYD OLIVAS KAUSHAL C Ot Z3A.31 31 WEEKS GESTATION OF 12/13/2018 GREGG FREEDMAN MD, Ot O47.03 FALSE LABOR BEFORE 37 COMPLETED WEEKS OF 12/13/2018 GREGG FREEDMAN MD, Ot Z3A.35 35 WEEKS GESTATION OF 12/14/2018 SEALJEZ Pearson DO, Ot O47.03 FALSE LABOR BEFORE 37 COMPLETED WEEKS OF 12/14/2018 JEZ DREW DO, Ot Z3A.35 35 WEEKS GESTATION OF Procedures Code [place] [address] URINE TEST (IN-HOUSE) 04/27/2012 88034 THERAPUTIC INJ SQ/IM 04/27/2012 J1055 DEPO-PROVERA INJ 150 MG 04/27/2012 50200 URINE TEST (IN-HOUSE) 07/14/2012 J1055 DEPO-PROVERA INJ 150 MG 07/14/2012 07880 THERAPUTIC INJ SQ/IM 07/14/2012 Results Test Result [...] - 07/25/18 22:54 Lipase 43 U/L 8-78 Complete urinalysis with reflex to culture - 10/30/18 05:06 Urine color determination YELLOW NRG Urine clarity determination CLEAR NRG Urine pH measurement by test strip 7.5 5-9 Specific gravity of urine by test [...] erythrocyte count by microscopy (number/high power field) RARE NRG Automated urine sediment leukocyte count by microscopy (number/high power field) [HPF] NRG Bacteria detection in urine sediment by light microscopy FEW NRG Squamous epithelial cells detection in urine sediment by light microscopy 10-25 NRG Crystals detection in urine sediment by light microscopy NONE NRG Casts detection in urine sediment by light microscopy NONE NRG Mucus detection in urine sediment by light microscopy NEGATIVE NRG Complete urinalysis with reflex to culture YES NRG Bacterial urine culture - 10/30/18 05:06 Bacterial urine culture [id number] NRG COLONY COUNT >100,000/ML NRG FTX;REPORTABLE SUSCEPTIBILITY REPORTED 11/01 12:55 NRG Dirithromycin susceptibility test by disk diffusion - 10/30/18 05:06 Gentamicin susceptibility test by minimum inhibitory concentration <= NRG Trimethoprim/sulfamethoxazole susceptibility test by minimum inhibitoryconcentration <= NRG Levofloxacin susceptibility test by minimum inhibitory concentration <= NRG Ampicillin susceptibility test by minimum inhibitory concentration <= NRG Cefazolin susceptibility test by minimum inhibitory concentration 2 NRG Ceftriaxone susceptibility test by minimum inhibitory concentration <= NRG Ciprofloxacin susceptibility test by minimum inhibitory concentration <= NRG Meropenem susceptibility test by minimum inhibitory concentration <= NRG Nitrofurantoin susceptibility test by minimum inhibitory concentration <= NRG Amoxicillin and clavulanate potassium susc DELMI <= NRG Complete blood count (CBC) with automated white blood cell (WBC) differential - 10/30/18 08:27 Blood leukocytes automated count (number/volume) 12.8 10*3/uL 4.3-11.0 Blood erythrocytes automated count (number/volume) 3.95 10*6/uL 4.35-5.85 Venous blood hemoglobin measurement (mass/volume) 11.9 g/dL 11.5-16.0 Blood hematocrit (volume fraction) 35 % 35-52 Automated erythrocyte mean corpuscular volume 88 [foz_us] 80-99 Automated erythrocyte mean corpuscular hemoglobin (mass per erythrocyte) 30 pg 25-34 Automated erythrocyte mean corpuscular hemoglobin concentration measurement (mass/volume) 34 g/dL 32-36 Automated erythrocyte distribution width ratio 12.4 % 10.0- 14.5 Automated blood platelet count (count/volume) 288 10*3/uL 130-400 Automated blood platelet mean volume measurement 9.3 [foz_us] 7.4-10.4 Automated blood neutrophils/100 leukocytes 75 % 42-75 Automated blood lymphocytes/100 leukocytes 15 % 12-44 Blood monocytes/100 leukocytes 8 % 0-12 Automated blood eosinophils/100 leukocytes 1 % 0-10 Automated blood basophils/100 leukocytes 0 % 0-10 Blood neutrophils automated count (number/volume) 9.6 10*3 1.8-7.8 Blood lymphocytes automated count (number/volume) 2.0 10*3 1.0-4.0 Blood monocytes automated count (number/volume) 1.1 10*3 0.0- 1.0 Automated eosinophil count 0.2 10*3/uL 0.0-0.3 Automated blood basophil count (count/volume) 0.0 10*3/uL 0.0-0.1 Comprehensive metabolic panel - 10/30/18 08:27 Serum or plasma sodium measurement (moles/volume) 138 mmol/L 135-145 Serum or plasma potassium measurement (moles/volume) 3.6 mmol/L 3.6-5.0 Serum or plasma chloride measurement (moles/volume) 106 mmol/L 98-107 Carbon dioxide 21 mmol/L 21-32 Serum or plasma anion gap determination (moles/volume) 11 mmol/L 5-14 Serum or plasma urea nitrogen measurement (mass/volume) 5 mg/dL 7-18 Serum or plasma creatinine measurement (mass/volume) 0.57 mg/dL 0.60-1.30 Serum or plasma urea nitrogen/creatinine mass ratio 9 NRG Serum or plasma creatinine measurement with calculation of estimated glomerular filtration rate > NRG Serum or plasma glucose measurement (mass/volume) 93 mg/dL 70-105 Serum or plasma calcium measurement (mass/volume) 9.5 mg/dL 8.5-10.1 Serum or plasma total bilirubin measurement (mass/volume) 0.4 mg/dL 0.1-1.0 Serum or plasma alkaline phosphatase measurement (enzymatic activity/volume) 53 U/L 40-136 Serum or plasma aspartate aminotransferase measurement (enzymatic activity/volume) 20 U/L 5-34 Serum or plasma alanine aminotransferase measurement (enzymatic activity/volume) 16 U/L 0-55 Serum or plasma protein measurement (mass/volume) 6.8 g/dL 6.4-8.2 Serum or plasma albumin measurement (mass/volume) 3.5 g/dL 3.2-4.5 CALCIUM CORRECTED 9.9 mg/dL 8.5-10.1 Serum ragweed IgE antibody assay - 10/30/18 08:27 Serum ragweed IgE antibody assay 165 U/L 125-220 Urine protein/creatinine mass ratio - 10/30/18 09:20 Urine protein measurement (mass/volume) 10 mg/dL 6-12 Urine creatinine measurement (mass/volume) 96 mg/dL 30-125 Urine protein/creatinine mass ratio 0.10 NRG Complete urinalysis with reflex to culture - 11/29/18 09:50 Urine color determination YELLOW NRG Urine clarity determination CLEAR NRG Urine pH measurement by test strip 6.5 5-9 Specific gravity of urine by test strip 1.015 1.016-1.022 Urine protein assay by test strip, semi-quantitative 2+ NEGATIVE Urine glucose detection by automated test strip NEGATIVE NEGATIVE Erythrocytes detection in urine sediment by light microscopy 1+ NEGATIVE Urine ketones detection by automated test strip NEGATIVE NEGATIVE Urine nitrite detection by test strip NEGATIVE NEGATIVE Urine total bilirubin detection by test strip NEGATIVE NEGATIVE Urine urobilinogen measurement by automated test strip (mass/volume) NORMAL NORMAL Urine leukocyte esterase detection by dipstick 3+ NEGATIVE Automated urine sediment erythrocyte count by microscopy (number/high power field) [HPF] NRG Automated urine sediment leukocyte count by microscopy (number/high power field) [HPF] NRG Bacteria detection in urine sediment by light microscopy MODERATE NRG Squamous epithelial cells detection in urine sediment by light microscopy 25-50 NRG Crystals detection in urine sediment by light microscopy NONE NRG Casts detection in urine sediment by light microscopy NONE NRG Mucus detection in urine sediment by light microscopy SMALL NRG Complete urinalysis with reflex to culture YES NRG Bacterial urine culture - 11/29/18 09:50 Bacterial urine culture 3 OR MORE NRG COLONY COUNT >100,000/ML NRG FTX;REPORTABLE SUGGESTING PROBABLE COLLECTION NRG FREE TEXT ENTRY 2 CONTAMINATION WITH SKIN RHETT NRG FREE TEXT ENTRY 3 NO SUSCEPTIBILITY PERFORMED NRG Complete urinalysis with reflex to culture - 12/13/18 22:30 Urine color determination YELLOW NRG Urine clarity determination CLEAR NRG Urine pH measurement by test strip 7 5-9 Specific gravity of urine by test [...] urobilinogen measurement by automated test strip (mass/volume) NORMAL NORMAL Urine leukocyte esterase detection by dipstick 1+ NEGATIVE Automated urine sediment erythrocyte count by microscopy (number/high power field) NONE NRG Automated urine sediment leukocyte count by microscopy (number/high power field) [HPF] NRG Bacteria detection in urine sediment by light microscopy TRACE NRG Squamous epithelial cells detection in urine sediment by light microscopy 5-10 NRG Crystals detection in urine sediment by light microscopy NONE NRG Casts detection in urine sediment by light microscopy NONE NRG Mucus detection in urine sediment by light microscopy NEGATIVE NRG Complete urinalysis with reflex to culture YES NRG Bacterial urine culture - 12/13/18 22:30 Bacterial urine culture [id number] NRG COLONY COUNT >100,000/ML NRG FTX;REPORTABLE SUSCEPTTIBILITY REPORTED 12-15-181004. NRG FREE TEXT ENTRY 2 ID REPORTED 12/14/18 17:05 NRG Dirithromycin susceptibility test by disk diffusion - 12/13/18 22:30 Gentamicin susceptibility test by minimum inhibitory concentration <= NRG Trimethoprim/sulfamethoxazole susceptibility test by minimum inhibitoryconcentration <= NRG Levofloxacin susceptibility test by minimum inhibitory concentration <= NRG Ampicillin susceptibility test by minimum inhibitory concentration <= NRG Cefazolin susceptibility test by minimum inhibitory concentration <= NRG Ceftriaxone susceptibility test by minimum inhibitory concentration <= NRG Ciprofloxacin susceptibility test by minimum inhibitory concentration <= NRG Meropenem susceptibility test by minimum inhibitory concentration <= NRG Nitrofurantoin susceptibility test by minimum inhibitory concentration <= NRG Amoxicillin and clavulanate potassium susc DELMI <= NRG Encounters ACCT No. Visit Date/Time Discharge Status Pt. Type Provider Facility Loc./Unit Complaint [id number] 07/14/2012 16:16:00 07/14/2012 23:59:59 CLS Outpatient [id number] 04/27/2012 07:59:00 04/27/2012 23:59:59 CLS Outpatient [id number] 12/13/2018 22:11:00 12/13/2018 23:32:00 DIS Outpatient JEZ DREW DO [facility] CONTRACTIONS [id number] 12/04/2018 01:53:00 12/04/2018 03:20:00 DIS Outpatient KAUSHAL DESAI DO [facility] POSS WATER BROKE [id number] 12/01/2018 00:21:00 12/01/2018 01:16:00 DIS Outpatient GREGG FREEDMAN MD [facility] LOWER BACK PAIN PRESSURE,FLUID LEAKING [id number] 11/29/2018 09:46:00 11/29/2018 16:06:00 DIS Outpatient JEZ DREW DO [facility] HEADACHE,N/V,DECREASED MOVEMENT [id number] 10/30/2018 07:14:00 10/30/2018 11:05:00 DIS Outpatient KAUSHAL DESAI DO [facility] 31 WKS PRESSURE [id number] 10/30/2018 05:03:00 10/30/2018 05:55:00 DIS Emergency JANICE GOMEZ DO [facility] ER FS 31 WEEKS PREG W/CRAMPING;PRESSURE [id number] 10/21/2018 14:02:00 10/21/2018 23:59:59 CLS Outpatient KAUSHAL DESAI DO [facility] RAD EVALUATE ANATOMY NOT SEEN ON PRIOR SONOGRAM [id number] 08/12/2018 09:58:00 08/12/2018 23:59:59 CLS Outpatient KAUSHAL DESAI DO [facility] RAD FETUS PRESENT IN SECOND TRIMESTER [id number] 07/25/2018 22:45:00 07/26/2018 00:24:00 DIS Emergency KIRA JAMES DO [facility] ER FS STOMACH PAIN--18 WEEKS
[2018-12-15] MEDS ORDERED: cefTRIAXone FOR IV USE 1,000 MG in WATER (STERILE) FOR INJECTION 10 ML IV SCH (19:15)
[2018-12-15] MEDS ORDERED: MINERAL OIL CONCENTRATE 99.9% 15 ML UDC TOP PRN (19:15)
[2018-12-15] MEDS: D5 LR IV SOLUTION 1,000 ML IV SCH (20:02)
[2018-12-15 20:16] LABS: BASOPHILS % (AUTO) 0 % (0-10); EOSINOPHILS # (AUTO) 0.1 10^3/uL (0.0-0.3); EOSINOPHILS % (AUTO) 1 % (0-10); HEMATOCRIT 36 % (35-52); LYMPHOCYTES # (AUTO) 2.3 X 10^3 (1.0-4.0); LYMPHOCYTES % (AUTO) 14 % (12-44); MEAN CORPUSCULAR HEMOGLOBIN 30 PG (25-34); MEAN CORPUSCULAR HGB CONC 34 G/DL (32-36); MEAN CORPUSCULAR VOLUME 88 FL (80-99); MEAN PLATELET VOLUME 9.9 FL (7.4-10.4); MONOCYTES # (AUTO) 1.4 X 10^3 (0.0-1.0); MONOCYTES % (AUTO) 9 % (0-12); NEUTROPHILS % (AUTO) 76 % (42-75); PLATELET COUNT 314 10^3/uL (130-400); RED CELL DISTRIBUTION WIDTH 12.6 % (10.0-14.5); WHITE BLOOD COUNT 15.7 10^3/uL (4.3-11.0)
[2018-12-15] MEDS ORDERED: MISOPROSTOL 100 MCG (CYTOTEC) TAB ONE (20:34)
[2018-12-15] MEDS ORDERED: MISOPROSTOL 100 MCG (CYTOTEC) TAB PO ONE (20:45)
[2018-12-15 20:57] LABS: ALANINE AMINOTRANSFERASE 14 U/L (0-55); ALBUMIN 3.4 GM/DL (3.2-4.5); ALKALINE PHOSPHATASE 79 U/L (40-136); BILIRUBIN,TOTAL 0.3 MG/DL (0.1-1.0); BUN/CREATININE RATIO 10; CALCIUM 9.4 MG/DL (8.5-10.1); CARBON DIOXIDE 19 MMOL/L (21-32); CHLORIDE 105 MMOL/L (98-107); CREATININE SERUM 0.62 MG/DL (0.60-1.30); GFR ESTIMATED > 60; GLUCOSE 92 MG/DL (70-105); POTASSIUM 3.6 MMOL/L (3.6-5.0); SODIUM 138 MMOL/L (135-145); TOTAL PROTEIN 6.9 GM/DL (6.4-8.2)
[2018-12-15] MEDS ORDERED: morphine INJ 10 MG/ML 1ML (SYR OR VIAL) ONE (23:54)
[2018-12-15] MEDS ORDERED: PROMETHAZINE INJ 25 MG/ML (PHENERGAN) AMP ONE (23:54)
[2018-12-16] VITALS (21 sets, daily range): BP systolic 123–146; BP diastolic 60–97
[2018-12-16] MEDS: morphine INJ 4 MG/ML 1 ML (VIAL/SYRINGE) IVP PRN ×2 (00:05→04:47)
[2018-12-16] MEDS: PROMETHAZINE INJ 25 MG/ML (PHENERGAN) AMP IVP PRN ×2 (00:05→04:42)
[2018-12-16] MEDS: MISOPROSTOL 100 MCG (CYTOTEC) TAB PO SCH ×2 (00:45→04:53)
[2018-12-16] MEDS: D5 LR IV SOLUTION 1,000 ML IV SCH (03:14)
[2018-12-16] MEDS ORDERED: LIDOCAINE/EPI 2% 1:200,00 (XYLOCAINE) 10 ML VIAL ONE (05:02)
[2018-12-16] MEDS ORDERED: OXYTOCIN/NORMAL SALINE 500 ML IV ONE (05:02)
[2018-12-16] MEDS ORDERED: OXYTOCIN/NORMAL SALINE 500 ML IV SCH (06:05)
--- NOTE | 2018-12-16 06:05 | OB Labor & Delivery Record ---
Vag Delivery Note Vag Delivery Note Date of Delivery: 12/16/18 Preoperative Diagnosis: Edward Cherry is a 23 /Para 1 /0 ,Gestational Age 38 weeks, with gestational hypertension/mild preeclampsia, labor, E coli UTI Postoperative Diagnosis: Same Surgeon: KAUSHAL DESAI Anesthesia: none Delivery Type: vaginal Findings: Viable female infant, apgars pending, weight 6#8oz Lacerations: none Intact placenta with 3 vessel cord. No nuchal cord, body cord or shoulder dystocia Estimated Blood Loss: 200 ml Complications: None Condition: Stable Description of Procedure: The patient is a 23 year old female who presented to my clinic for routine ob visit but complaining of contractions and headache. She had been at labor and delivery 2 days previous with complaint of contractions and dizziness (BP was not recorded). In the office her BP was 137/89 then 140/92 and she had 1+ proteinuria. She was also noted to be valeria, in early labor, with bloody show . She was admitted and informed consent was obtained. Her labor course was remarkable for elevated blood pressures. She did not want augmentation or anesthesia, but did agree to misoprostol so was given 1 dose. She was 4 cm at 2:00 am and requested pain medication. She was given pain medication (morpine as she was in early labor) and IV promethazine. At 4:50 she was given an additional dose of pain medication because she was 6 cm dilated. However, she progressed very quickly and at 0505 was complete and pushy. I was notified and arrived quickly to the hospital There was SROM with clear fluid at 0513. She progressed to complete dilatation and began to push. She was then set up for delivery. The 's head was delivered atraumatically in the ARLIN position. She pushed one time. The shoulders and remainder of the 's body were then delivered without difficulty. Delivery was at 0530. She was delivered directly onto the bed. Upon delivery, the head was held below the level of the perineum and the mouth and nares were bulb suctioned. The cord was doubly clamped and cut and the was handed off to the pediatric staff. An intact placenta with 3-vessel cord (and velamentous insertion) delivered via Carlson and there was found to be minimal bleeding.~ Vigorous fundal massage was performed and the fundus was found to be firm. IV oxytocin was given. Examination of the vagina and perineum revealed no laceration. Following the delivery, sponge, instrument and needle counts were correct. Mom and baby were both in stable condition in the labor suite. She was noted to have had a E Coli UTI from her triage visit on 12/13/18. UA was negative, but + culture. She had not been treated so was given IV rocephin on admission. Will continue oral treatment post delivery Vitals - Labs Vital Signs - I&O Vital Signs Date Time Temp Pulse Resp B/P (MAP) Pulse Ox O2 Delivery O2 Flow Rate FiO2 12/16/18 03:05 96 16 142/90 (107) Room Air 12/16/18 02:05 76 16 133/79 (97) Room Air 12/16/18 01:35 97.6 75 16 139/87 (104) Room Air 12/16/18 01:05 71 16 130/68 (88) Room Air 12/16/18 00:35 93 16 126/72 (90) Room Air 12/16/18 00:05 73 16 139/78 (98) Room Air 12/15/18 23:35 73 16 142/84 (103) Room Air 12/15/18 23:05 97.9 68 16 137/78 (97) Room Air 12/15/18 22:35 67 16 130/76 (94) Room Air 12/15/18 22:05 69 16 134/76 (95) Room Air 12/15/18 21:30 69 16 127/76 (93) Room Air 12/15/18 21:00 68 16 128/70 (89) Room Air 12/15/18 20:35 68 16 127/72 (90) Room Air 12/15/18 20:05 98.1 74 16 120/66 (84) Room Air 12/15/18 19:30 74 16 135/77 (96) Room Air 12/15/18 19:00 98.1 74 16 137/81 (99) Room Air I & O 12/16/18 06:59 Intake Total 1000 ml Balance 1000 ml Labs Laboratory Tests 12/15/18 19:50: White Blood Count 15.7H, Red Blood Count 4.06L, Hemoglobin 12.0, Hematocrit 36, Mean Corpuscular Volume 88, Mean Corpuscular Hemoglobin 30, Mean Corpuscular Hemoglobin Concent 34, Red Cell Distribution Width 12.6, Platelet Count 314, Mean Platelet Volume 9.9, Neutrophils (%) (Auto) 76H, Lymphocytes (%) (Auto) 14, Monocytes (%) (Auto) 9, Eosinophils (%) (Auto) 1, Basophils (%) (Auto) 0, Neutrophils # (Auto) 12.0H, Lymphocytes # (Auto) 2.3, Monocytes # (Auto) 1.4H, Eosinophils # (Auto) 0.1, Basophils # (Auto) 0.0, Sodium Level 138, Potassium Level 3.6, Chloride Level 105, Carbon Dioxide Level 19L, Anion Gap 14, Blood Urea Nitrogen 6L, Creatinine 0.62, Estimat Glomerular Filtration Rate > 60, BUN/Creatinine Ratio 10, Glucose Level 92, Calcium Level 9.4, Corrected Calcium 9.9, Total Bilirubin 0.3, Aspartate Amino Transf (AST/SGOT) 16, Alanine Aminotransferase (ALT/SGPT) 14, Alkaline Phosphatase 79, Total Protein 6.9, Albumin 3.4 KAUSHAL DESAI DO Dec 16, 2018 06:05
[2018-12-16] MEDS ORDERED: BENZOCAINE/MENTHOL (DERMOPLAST) 56 ML CAN TP PRN (06:15)
[2018-12-16] MEDS ORDERED: WITCH HAZEL(TUCKS) 40 EA JAR TOP PRN (06:15)
[2018-12-16] MEDS ORDERED: MEASLES,MUMPS,RUBELLA 1 EA INJ SQ ONE (06:15)
[2018-12-16] MEDS ORDERED: TETANUS,DIPTH,PERTUSS P/F (BOOSTRIX) 0.5 ML VIAL IM ONE (06:15)
[2018-12-16] MEDS ORDERED: IBUPROFEN 600 MG (MOTRIN) TAB PO ONE (08:17)
--- NOTE | 2018-12-16 08:20 | NUR ---
Pt ambulated to room 311 with this RN, infant and family @ side. pt tolerated well. no c/o's voiced. scheduled A.M. medications given, see eMar for further.
[2018-12-16] MEDS: CEPHALEXIN 250 MG (KEFLEX) CAP PO SCH ×2 (08:30→20:31)
[2018-12-16] MEDS: PRENATAL VITAMIN 1 EA TAB PO SCH (08:30)
[2018-12-16] MEDS: DOCUSATE SODIUM 100 MG (COLACE) CAP PO SCH ×2 (08:30→20:30)
[2018-12-16] MEDS: FERROUS SULF 325 MG (IRON) TAB PO SCH (08:30)
--- NOTE | 2018-12-16 08:30 | NUR ---
initial shift assessment completed. see interventions for further.
--- NOTE | 2018-12-16 08:35 | NUR ---
up to shower.
[2018-12-16] MEDS ORDERED: CATHETER FLUSH 10 ML SYR IV SCH (14:00)
[2018-12-16] MEDS: IBUPROFEN 600 MG (MOTRIN) TAB PO SCH ×2 (14:25→20:30)
[2018-12-16] MEDS: ACETAMINOPHEN 500 MG TAB (TYLENOL) PO SCH (14:25)
[2018-12-16] MEDS ORDERED: ACET-77 PO (18:48)
[2018-12-16] MEDS ORDERED: IBUP-844 PO (18:48)
[2018-12-16] MEDS ORDERED: CEPH250C PO (18:48)
--- NOTE | 2018-12-16 18:53 | Discharge Inst-Women's Service ---
Discharge Inst-Women's Serv Depart Medication/Instructions New, Converted or Re-Newed RX: Transmitted to Pharmacy Final Diagnosis gestational hypertension 38 weeks gestation labor vaginal delivery Problems Reviewed?: Yes Consults/Follow Up Additional Follow Up: Yes (2 weeks [address] desai) Activity Activity: Activity as Tolerated Driving Instructions: You May Drive NO SMOKING: NO SMOKING Nothing Inside Vagina: No Douching, No [place], No Tampons Diet Discharge Diet: No Restrictions Symptoms to Report to : Swelling Increased, Pain Increased, Urine Color Change, Fever Over 101 Degrees F, Vaginal Bleeding Increase, Cramps in Feet or Legs, Vaginal Discharge Foul For Any Problems or Questions: Contact Your Physician KAUSHAL DESAI DO Dec 16, 2018 18:53
--- NOTE | 2018-12-16 19:26 | NUR ---
Report given to next shift.
--- NOTE | 2018-12-16 20:30 | NUR ---
VSS, sched ibuprofen, keflex & colace given w/fresh ice water. Assessment completed, pt. reports having BM, denies pain or needs. POC reviewed, pt. verbalized understanding & thankful, family @ bedside.
[2018-12-17 00:25] VITALS: BP 124/69
[2018-12-17] MEDS: ACETAMINOPHEN 500 MG TAB (TYLENOL) PO SCH ×2 (00:26→09:33)
[2018-12-17 05:00] VITALS: BP 125/81
[2018-12-17] MEDS: IBUPROFEN 600 MG (MOTRIN) TAB PO SCH ×2 (05:08→11:57)
[2018-12-17 05:38] LABS: BASOPHILS % (AUTO) 0 % (0-10); EOSINOPHILS # (AUTO) 0.1 10^3/uL (0.0-0.3); EOSINOPHILS % (AUTO) 1 % (0-10); HEMATOCRIT 34 % (35-52); HEMOGLOBIN 11.5 G/DL (11.5-16.0); LYMPHOCYTES # (AUTO) 2.6 X 10^3 (1.0-4.0); LYMPHOCYTES % (AUTO) 18 % (12-44); MEAN CORPUSCULAR HEMOGLOBIN 30 PG (25-34); MEAN CORPUSCULAR HGB CONC 34 G/DL (32-36); MEAN CORPUSCULAR VOLUME 89 FL (80-99); MEAN PLATELET VOLUME 9.8 FL (7.4-10.4); MONOCYTES # (AUTO) 1.4 X 10^3 (0.0-1.0); MONOCYTES % (AUTO) 10 % (0-12); NEUTROPHILS # (AUTO) 9.9 X 10^3 (1.8-7.8); NEUTROPHILS % (AUTO) 71 % (42-75); PLATELET COUNT 242 10^3/uL (130-400); RED CELL DISTRIBUTION WIDTH 12.8 % (10.0-14.5)
--- NOTE | 2018-12-17 07:00 | NUR ---
REPORT FROM SUNITA GARCIA.
--- NOTE | 2018-12-17 08:30 | NUR ---
PT RESTING IN BED WITH S/O AT SIDE, INFANT IN MOTHERS ARMS, NO DISTRESS NOTED.
[2018-12-17] MEDS: PRENATAL VITAMIN 1 EA TAB PO SCH (09:33)
[2018-12-17] MEDS: CEPHALEXIN 250 MG (KEFLEX) CAP PO SCH (09:33)
[2018-12-17] MEDS: FERROUS SULF 325 MG (IRON) TAB PO SCH (09:33)
--- NOTE | 2018-12-17 09:45 | NUR ---
INITIAL ASSESSMENT COMPLETED, VSS, SEE INTERVENTIONS FOR DETAILED ASSESSMENTS, PLAN OF CARE EXPLAINED WILL MONITOR CLOSELY, SCHEDULED MEDS GIVEN.
--- NOTE | 2018-12-17 10:10 | NUR ---
DR DESAI CALLED, UPDATED GIVEN, NEW ORDERS RECEIVED.
--- NOTE | 2018-12-17 11:55 | NUR ---
SCHEDULED MOTRIN GIVEN
[2018-12-17 13:00] VITALS: BP 138/78
--- NOTE | 2018-12-17 13:30 | NUR ---
D/C INSTRUCTIONS EXPLAINED, SIGNED BY PT, NO QUESTIONS NOTED, VSS, PT VERBALIZES UNDERSTANDING OF FOLLOW UP CARE AND INSTRUCTIONS.
--- NOTE | 2018-12-17 16:00 | NUR ---
PT DC TO HOME, AMBULATED TO PRIVATE CAR WITH S/O AT SIDE, PT DENIES C/O, INFANT SECURED IN REAR FACING CAR SEAT WITH FAMILY AT SIDE.
--- NOTE | 2018-12-21 14:34 | Physician Query-Final Dx ---
Final Diagnosis Give Final Diagnosis Please give Final Diagnosis SUNITA SUNG Dec 21, 2018 14:34
== END 2018-12-17 16:00 | disposition home or self-care (01) | DRG 807 ==
LOC: LDRP 18:40
PROVIDERS: ADMIT Obstetrics & Gynecology; ATTEND Obstetrics & Gynecology
PROC: 10E0XZZ Delivery of Products of Conception, External Approach (ICD-10-PCS; principal; 2018-12-16)
DX: O13.4 Gestational [pregnancy-induced] hypertension without significant proteinuria, complicating childbirth (principal); O14.04 Mild to moderate pre-eclampsia, complicating childbirth; O23.43 Unspecified infection of urinary tract in pregnancy, third trimester; B96.20 Unspecified Escherichia coli [E. coli] as the cause of diseases classified elsewhere; Z37.0 Single live birth; Z3A.38 38 weeks gestation of pregnancy
CPT/HCPCS: 36415; 80053; 85025; 86850; 86900; 86901

== ENCOUNTER 2019-06-26 18:55 | Emergency (ER) | payer BC, MEDICAID ==
[~2019-06-26] VITALS: Ht 172 cm; Wt 97.0 kg
[~2019-06-26 18:55] MED LIST changes: +ACET-78 PO; +CEPH250C PO; +IBUP-844 PO
[2019-06-26] MEDS ORDERED: KETOROLAC 60 MG/2 ML VIAL IM ONE (19:45)
--- NOTE | 2019-06-26 19:49 | ED General ---
General Chief Complaint: General Problems/Pain Stated Complaint: CHEST PAIN; HEADACHE Nursing Triage Note: PT STATES SHE HAS HAD CHEST PAIN FOR A COUPLE OF DAYS AND STARTED HAVING A HEADACHE TONIGHT Nursing Sepsis Screen: No Definite Risk History of Present Illness Date Seen by Provider: Jun 26, 2019 Time Seen by Provider: 19:15 Timing/Duration: 12-24 Hours Severity: Mild Modifying Factors: improves with Rest Associated Systoms: Chest Pain; No Fever/Chills; Headaches, Malaise; No Syncope, No Weakness Allergies and Home Medications Allergies Coded Allergies: No Known Drug Allergies (Unverified , 12/15/18) Home Medications Acetaminophen 500 Mg Tablet, 1,000 MG PO Q8HR Prescribed by: KAUSHAL DESAI on 12/16/181847 Cephalexin 250 Mg Capsule, 500 MG PO BID Prescribed by: KAUSHAL DESAI on 12/16/181847 Ibuprofen 600 Mg Tablet, 600 MG PO Q6HR Prescribed by: KAUSHAL DESAI on 12/16/181847 Brw014/FA/Omega3/Dha/Fish Oil 1 Each Tab.chew, 2 EACH PO DAILY, (Reported) Patient Home Medication List Home Medication List Reviewed: Yes Review of Systems Review of Systems Constitutional: No chills, No fever; malaise EENTM: No vision loss, No nose congestion, No throat swelling Respiratory: No dyspnea on exertion, No short of breath, No wheezing Cardiovascular: chest pain; No palpitations Gastrointestinal: No abdominal pain, No constipation, No diarrhea, No nausea, No vomiting Genitourinary: No dysuria, No frequency Musculoskeletal: No joint pain, No muscle pain, No muscle weakness Skin: No rash Psychiatric/Neurological: Headache, Numbness, Paresthesia, Tingling Past Mmxwbgu-Byewma-Dmbchn Hx Past Med/Social Hx: Reviewed Nursing Past Med/Soc Hx Patient Social History Alcohol Use: Denies Use Recreational Drug Use: No Smoking Status: Never a Smoker 2nd Hand Smoke Exposure: No Recent Foreign Travel: No Contact w/Someone Who Travel: No Recent Infectious Disease Expo: No Recent Hopitalizations: Yes Physical Abuse: No Sexual Abuse: No Mistreated: No Fear: No Seasonal Allergies Seasonal Allergies: No Past Medical History Surgeries: No Respiratory: Yes Asthma Cardiac: No Neurological: No Sexually Transmitted Disease: No Genitourinary: No Gastrointestinal: No Musculoskeletal: No Endocrine: No HEENT: No Cancer: No Psychosocial: No Integumentary: No Blood Disorders: Yes (anemia) Family Medical History FH: blood disorder (tendency to bleed easy) 19 MOTHER FH: migraine headache 19 MOTHER Hypertension 19 FATHER Physical Exam Vital Signs Vital Signs - First Documented 06/26/19 18:55 Temp 36.8 Pulse 94 Resp 14 B/P (MAP) 129/71 (90) Pulse Ox 99 O2 Delivery Room Air Capillary Refill : Less Than 3 Seconds Height, Weight, BMI Height: 5'8.00" Weight: 231lbs. 4.0oz. [id number]; 32.00 BMI Method:Stated General Appearance: No Apparent Distress, WD/WN HEENT: PERRL/EOMI, TMs Normal, Pharynx Normal Neck: Normal Inspection, Non Tender, Supple Respiratory: Lungs Clear, Normal Breath Sounds Cardiovascular: Regular Rate, Rhythm, No Murmur Gastrointestinal: Normal Bowel Sounds, Non Tender Extremity: Normal Inspection, Normal Range of Motion Neurologic/Psychiatric: Alert, Oriented x3 Skin: Normal Color, Warm/Dry Progress/Results/Core Measures Suspected Sepsis Recent Fever Within 48 Hours: No Infection Criteria Present: None New/Unexplained Altered Menta: No Sepsis Screen: No Definite Risk SIRS Temperature: Pulse: 94 Respiratory Rate: 14 Blood Pressure 129 /71 Mean: 90 Results/Orders My Orders Orders - BRIE ABDUL JR, MD Ketorolac Injection (Toradol Injection) (06/26/19 19:45) Vital Signs/I&O 06/26/19 18:55 Temp 36.8 Pulse 94 Resp 14 B/P (MAP) 129/71 (90) Pulse Ox 99 O2 Delivery Room Air Capillary Refill : Less Than 3 Seconds Blood Pressure Mean: 90 Progress Note : Time: 19:46 Progress Note Discussed with her about her current situation she is on second dose of Depo- Provera has had a headache since that time did have the chest pain but not sure the 2 are related also had some paresthesias in the hands and sounds more like anxiety than it doesn't itch or gallops the EKG was negative and overall I feel like little Toradol tonight and then follow up for the double the conversation with her PCP ECG Initial ECG Impression Date: Jun 26, 2019 Initial ECG Impression Time: 19:02 Initial ECG Rate: 90 Initial ECG Rhythm: Normal Sinus Initial ECG Intervals: Normal Initial ECG Impression: Normal Departure Impression Primary Impression: Head ache Qualified Codes: G44.209 - Tension-type headache, unspecified, not intractable Disposition: 01 HOME, SELF-CARE Condition: Stable Departure-Patient Inst. Referrals: AD VALDEZ APRN (PCP) Primary Care Physician Patient Instructions: Headache, Adult BRIE ABDUL JR, MD Jun 26, 2019 19:49
[2019-06-26 19:55] VITALS: BP 128/73
== END 2019-06-26 19:58 | disposition home or self-care (01) ==
LOC: EDUNIT# 18:55 → ER FS 18:56
DX: R51 Headache (principal); Z82.49 Family history of ischemic heart disease and other diseases of the circulatory system
CPT/HCPCS: 93005; 96372; 99284

== ENCOUNTER 2019-07-16 11:53 | Emergency (ER) | payer BC, OTHER ==
[~2019-07-16] VITALS: Ht 173 cm; Wt 94.0 kg
--- NOTE | 2019-07-16 12:25 | ED Back Pain ---
General Chief Complaint: Back Problems Stated Complaint: BACK PAIN Nursing Triage Note: Patient reports lower L back pain that radiates to her L leg. States pain started yesterday after lifting dog food Nursing Sepsis Screen: No Definite Risk Source of Information: Patient History of Present Illness Date Seen by Provider: Jul 16, 2019 Time Seen by Provider: 12:25 Initial Comments 24-year-old female presenting with low back pain radiating down her left leg. This started after lifting a 50 pound bag of dog food on Thursday. She states that she was lifting it out of the shopping cart and putting it into her car. She denies any loss of bowel or bladder control. She has no numbness in her leg. The pain is going down the back of her leg. She denies problems like this in the past. She had taken ibuprofen yesterday which helped with her symptoms but today she took Tylenol. Allergies and Home Medications Allergies Coded Allergies: No Known Drug Allergies (Unverified , 12/15/18) Home Medications Acetaminophen 500 Mg Tablet, 1,000 MG PO Q8HR Prescribed by: KAUSHAL DESAI on 12/16/181847 Cephalexin 250 Mg Capsule, 500 MG PO BID Prescribed by: KAUSHAL DESAI on 12/16/181847 Ibuprofen 600 Mg Tablet, 600 MG PO Q6HR Prescribed by: KAUSHAL DESAI on 12/16/181847 Ibuprofen 800 Mg Tablet, 800 MG PO Q8H PRN for PAIN Prescribed by: XAVIRE PEÑALOZA on 07/16/19 1323 [id number]/FA/Omega3/Dha/Fish Oil 1 Each Tab.chew, 2 EACH PO DAILY, (Reported) Tizanidine HCl 4 Mg Tablet, 4 MG PO Q8H PRN for MUSCLE SPASMS Prescribed by: XAVIER PEÑALOZA on 07/16/19 1323 Patient Home Medication List Home Medication List Reviewed: Yes Review of Systems Constitutional: No chills, No fever EENTM: no symptoms reported Respiratory: no symptoms reported Cardiovascular: no symptoms reported Gastrointestinal: no symptoms reported Genitourinary: no symptoms reported Musculoskeletal: see HPI, back pain (lumbar level and radiating down left leg); No joint swelling, No muscle weakness Skin: no symptoms reported Psychiatric/Neurological: Denies Numbness, Denies Paresthesia Past Ntzyjva-Opkrcd-Whgxgv Hx Past Med/Social Hx: Reviewed Nursing Past Med/Soc Hx Patient Social History Alcohol Use: Denies Use Recreational Drug Use: No 2nd Hand Smoke Exposure: No Recent Foreign Travel: No Contact w/Someone Who Travel: No Recent Infectious Disease Expo: No Recent Hopitalizations: Yes Seasonal Allergies Seasonal Allergies: No Past Medical History Surgeries: No Respiratory: Yes Asthma Cardiac: No Neurological: No Sexually Transmitted Disease: No Genitourinary: No Gastrointestinal: No Musculoskeletal: No Endocrine: No HEENT: No Cancer: No Psychosocial: No Integumentary: No Blood Disorders: Yes (anemia) Family Medical History FH: blood disorder (tendency to bleed easy) 19 MOTHER FH: migraine headache 19 MOTHER Hypertension 19 FATHER Physical Exam Vital Signs Vital Signs - First Documented 07/16/19 11:59 Temp 36.6 Pulse 85 Resp 18 B/P (MAP) 127/71 (89) Pulse Ox 96 Capillary Refill : Less Than 3 Seconds Height, Weight, BMI Height: 5'8.00" Weight: 231lbs. 4.0oz. 104.513986af; 31.00 BMI Method:Stated General Appearance: WD/WN, Mild Distress HEENT: PERRL/EOMI, Normal ENT Inspection, Pharynx Normal Neck: Full Range of Motion, Normal Inspection, Non Tender, Supple Cardiovascular: Regular Rate, Rhythm, Normal Peripheral Pulses Respiratory: Chest Non Tender, Lungs Clear, Normal Breath Sounds, No Accessory Muscle Use, No Respiratory Distress Gastrointestinal: No Pulsatile Mass, Non Tender, Soft Back: No CVA Tenderness, Muscle Spasm (paraspinal muscles on left side of lumbar spine), Vertebral Tenderness (lumbar spine) Extremity: Normal Capillary Refill, Normal Inspection, No Pedal Edema Neurologic/Psychiatric: Alert, Oriented x3 Skin: Normal Color, Warm/Dry Progress/Results/Core Measures Results/Orders Lab Results Laboratory Tests Test 07/16/19 12:05 Range/Units Urine Color YELLOW Urine Clarity CLEAR Urine pH 5.5 5-9 Urine Specific [place] >1.030 1.016-1.022 Urine Protein NEGATIVE NEGATIVE Urine Glucose (UA) NEGATIVE NEGATIVE Urine Ketones NEGATIVE NEGATIVE Urine Nitrite NEGATIVE NEGATIVE Urine Bilirubin NEGATIVE NEGATIVE Urine Urobilinogen 0.2 < = 1.0 MG/DL Urine Leukocyte Esterase NEGATIVE NEGATIVE Urine RBC (Auto) NEGATIVE NEGATIVE Urine RBC RARE /HPF Urine WBC NONE /HPF Urine Squamous Epithelial Cells 0-2 /HPF Urine Crystals NONE /LPF Urine Bacteria TRACE /HPF Urine Casts NONE /LPF Urine Mucus SMALL H /LPF Urine Culture Indicated NO My Orders Orders - XAVIER PEÑALOZA MD Ua Culture If Indicated (07/16/19 11:56) Urine Bedside (07/16/19 11:56) Ketorolac Injection (Toradol Injection) (07/16/19 12:33) Orphenadrine Injection (Norflex Injectio (07/16/19 12:33) Lumbar Spine 2 Or 3 View (07/16/19 12:33) Vital Signs/I&O 07/16/19 11:59 Temp 36.6 Pulse 85 Resp 18 B/P (MAP) 127/71 (89) Pulse Ox 96 Blood Pressure Mean: 89 Progress Progress Note #1: Progress Note Check urinalysis and x-rays of her lumbar spine to evaluate for compression fracture or alignment abnormality. Progress Note #2: Time: 13:09 Progress Note No acute abnormality on the urinalysis. The lumbar spine x-rays did not show any acute abnormality. Treat with Toradol and Norflex here and discharge on Zanaflex since that showed is been on formulary according to the pharmacy program, ibuprofen for inflammation. Advised to alternate ice and heat for the back pain. Limit lifting over the next week. Check back with the clinic for continued sym ptoms and problems Diagnostic Imaging Diagonstic Imaging: Xray Plain Films/CT/US/NM/MRI: other (lumbar spine) Comments NAME: BALAJI PARKS [facility] REC#: [id number] PT STATUS: REG ER : 1995 PHYSICIAN: XAVIER PEÑALOZA MD ADMIT DATE: 07/16/19/ER FS Draft Date of Exam:07/16/19 LUMBAR SPINE 2 OR 3 VIEW HISTORY: Low back pain radiating into the left leg. COMPARISON: None FINDINGS: There are 5 lumbar type vertebral bodies. There is slight right convex curvature of the lumbar spine centered at L1 which may be positional. Vertebral body heights are preserved. No acute fracture is seen. Disc heights are generally preserved. The bilateral sacroiliac joints are patent. IMPRESSION: 1. No acute osseous abnormality is seen in the lumbar spine. Dictated on workstation # [id number] Dict: 07/16/19 1248 Trans: 07/16/19 1250 CHAD [id number] Interpreted by: MAUREEN SÁNCHEZ MD Electronically signed by: Departure Impression Primary Impression: Low back pain radiating to left leg Additional Impression: Acute low back pain with left-sided sciatica Qualified Codes: M54.42 - Lumbago with sciatica, left side Disposition: 01 HOME, SELF-CARE Condition: Stable Departure-Patient Inst. Decision time for Depature: 13:19 Referrals: [facility]/ (PCP) Primary Care Physician AD VALDEZ APRN (Family) Primary Care Physician Patient Instructions: Lumbar Muscle Strain (DC), Sciatica (DC), Low Back Pain (DC) Add. Discharge Instructions: Use the muscle relaxer and anti-inflammatory to help with low back pain and spasms. You could still take Acetaminophen (Tylenol) for pain if needed for additional pain relief. Alternate ice and heat to the low back to help with pain and inflammation All discharge instructions reviewed with patient and/or family. Voiced understa nding. Scripts Tizanidine HCl (Zanaflex) 4 Mg Tablet 4 MG PO Q8H PRN for MUSCLE SPASMS for 10 Days, #30 TAB 0 Refills Prov: XAVIER PEÑALOZA MD 07/16/19 Ibuprofen (Ibuprofen) 800 Mg Tablet 800 MG PO Q8H PRN for PAIN for 10 Days, #30 TAB 0 Refills Prov: XAVIER PEÑALOZA MD 07/16/19 Work/School Note: Work Release Form Date Seen in the Emergency Department: Jul 16, 2019 Return to Work: Jul 17, 2019 Other Restrictions Listed Below: No lifting more than 20 pounds for the next week. XAVIER PEÑALOZA MD Jul 16, 2019 12:25
[2019-07-16 12:26] LABS: CLARITY,URINE CLEAR; COLOR,URINE YELLOW
[2019-07-16 12:27] LABS: BACTERIA,URINE TRACE /HPF; BILIRUBIN,URINE NEGATIVE (NEGATIVE); GLUCOSE, URINE (UA) NEGATIVE (NEGATIVE); KETONES,URINE NEGATIVE (NEGATIVE); LEUKOCYTE ESTERASE ,URINE NEGATIVE (NEGATIVE); NITRITE,URINE NEGATIVE (NEGATIVE); PH,URINE 5.5 (5-9); PROTEIN,URINE NEGATIVE (NEGATIVE); RBC,URINE RARE /HPF; SQUAMOUS EPITHELIAL CELL,UR 0-2 /HPF
[2019-07-16] MEDS ORDERED: KETOROLAC 60 MG/2 ML VIAL IM STA (12:33)
[2019-07-16] MEDS ORDERED: ORPHENADRINE 60 MG/2 ML (NORFLEX) AMP IM STA (12:33)
--- NOTE | 2019-07-16 12:51 | Diagnostic Imaging Report ---
HISTORY: Low back pain radiating into the left leg. COMPARISON: None FINDINGS: There are 5 lumbar type vertebral bodies. There is slight right convex curvature of the lumbar spine centered at L1 which may be positional. Vertebral body heights are preserved. No acute fracture is seen. Disc heights are generally preserved. The bilateral sacroiliac joints are patent. IMPRESSION: 1. No acute osseous abnormality is seen in the lumbar spine. Dictated by: Dictated on workstation # [id number]
[2019-07-16] MEDS ORDERED: TIZA4TAB11 PO (13:23)
[2019-07-16] MEDS ORDERED: IBUP-1780 PO (13:23)
[2019-07-16 13:34] VITALS: BP 127/71
== END 2019-07-16 13:37 | disposition home or self-care (01) ==
LOC: EDUNIT# 11:53 → ER FS 11:55
DX: M54.42 Lumbago with sciatica, left side (principal); Z82.49 Family history of ischemic heart disease and other diseases of the circulatory system; X50.0XXA Overexertion from strenuous movement or load, initial encounter
CPT/HCPCS: 72100; 81000; 84703

== ENCOUNTER → 2021-06-28 | Outpatient (CLI) | payer BC, MEDICAID ==
[~2021-06-28] MED LIST changes: +BUTA-235 PO; -BUTA1TAB9 PO; +IBUP-1780 PO; +TIZA4TAB11 PO
--- NOTE | 2021-06-28 15:43 | Diagnostic Imaging Report ---
PROCEDURE: US OB SINGLE FETUS <14 WKS. TECHNIQUE: Multiple real-time grayscale images were obtained over the gravid uterus in various projections. INDICATION: screening. FINDINGS: There is an intrauterine gestational sac containing a pole. [place]-rump length measurement is consistent with 8 weeks 4 days gestation. Heart rate was recorded at 167 BPM. No perigestational sac hemorrhage is detected. Adnexa are unremarkable. IMPRESSION: Single live IUP of 8 weeks 4 days gestational age with estimated date of confinement sonographically of 02/04/2022. No complicating features are detected. Dictated by: Dictated on workstation # [id number]
== END ==
LOC: RAD 15:15
PROVIDERS: ATTEND Obstetrics & Gynecology
DX: Z36.89 Encounter for other specified antenatal screening (principal); Z3A.08 8 weeks gestation of pregnancy
CPT/HCPCS: 76801

== ENCOUNTER 2022-01-02 09:08 | Outpatient (CLI) | payer MEDICAID ==
[~2022-01-02] VITALS: Ht 172.2 cm; Wt 102.1 kg
[2022-01-02 08:55] VITALS: BP 121/72
[2022-01-02 09:00] VITALS: BP 121/72
[2022-01-02 09:23] VITALS: BP 117/66
[2022-01-02] MEDS ORDERED: FLUO20CA42 PO (09:28)
[2022-01-02 09:40] VITALS: BP 119/66
[2022-01-02 09:43] LABS: BILIRUBIN,URINE NEGATIVE (NEGATIVE); CLARITY,URINE CLEAR; COLOR,URINE YELLOW; GLUCOSE, URINE (UA) NEGATIVE (NEGATIVE); KETONES,URINE NEGATIVE (NEGATIVE); LEUKOCYTE ESTERASE ,URINE 1+ (NEGATIVE); NITRITE,URINE NEGATIVE (NEGATIVE); PROTEIN,URINE NEGATIVE (NEGATIVE)
[2022-01-02 09:49] LABS: BACTERIA,URINE FEW /HPF; RBC,URINE 0-2 /HPF
[2022-01-02 09:55] VITALS: BP 126/65
[2022-01-02 10:05] VITALS: BP 128/67
--- NOTE | 2022-01-03 08:35 | Physician Query-Final Dx ---
TARA01/03/22 0835: Clinic Account Progress/Dx Physician Query: Please give diagnosis Please include # weeks gestation Date of Service Jan 02, 2022 at 09:08 GREGG FREEDMAN MD 01/03/22 1351: Clinic Account Progress/Dx DIAGNOSIS: Diagnosis 35 weeks gestation with decreased movement TARA,MayJan 03, 2022 08:35 GREGG FREEDMAN MD Jan 03, 2022 13:51
== END 2022-01-02 10:30 | disposition home or self-care (01) ==
LOC: LDRP 09:08 → WSo 09:08
PROVIDERS: ATTEND Obstetrics & Gynecology
DX: O36.8130 Decreased fetal movements, third trimester, not applicable or unspecified (principal); Z3A.35 35 weeks gestation of pregnancy
CPT/HCPCS: 81000; 87088

== ENCOUNTER 2022-01-09 09:36 | Inpatient (IN) | payer MEDICAID ==
[~2022-01-09] VITALS: Ht 172.7 cm; Wt 106.9 kg
[2022-01-09] VITALS (25 sets, daily range): BP systolic 107–139; BP diastolic 56–85
[~2022-01-09 09:36] MED LIST changes: +FLUO20CA42 PO
[2022-01-09 10:07] LABS: BASOPHILS % (AUTO) 0 % (0-10); EOSINOPHILS # (AUTO) 0.1 10^3/uL (0.0-0.3); EOSINOPHILS % (AUTO) 1 % (0-10); HEMATOCRIT 36 % (35-52); HEMOGLOBIN 12.6 g/dL (11.5-16.0); LYMPHOCYTES # (AUTO) 1.8 10^3/uL (1.0-4.0); LYMPHOCYTES % (AUTO) 16 % (12-44); MEAN CORPUSCULAR HEMOGLOBIN 31 pg (25-34); MEAN CORPUSCULAR HGB CONC 35 g/dL (32-36); MEAN CORPUSCULAR VOLUME 88 fL (80-99); MEAN PLATELET VOLUME 9.4 fL (9.0-12.2); MONOCYTES # (AUTO) 0.9 10^3/uL (0.0-1.0); MONOCYTES % (AUTO) 8 % (0-12); NEUTROPHILS # (AUTO) 8.1 10^3/uL (1.8-7.8); NEUTROPHILS % (AUTO) 75 % (42-75); PLATELET COUNT 287 10^3/uL (130-400); WHITE BLOOD COUNT 10.9 10^3/uL (4.3-11.0)
[2022-01-09 10:08] LABS: BILIRUBIN,URINE NEGATIVE (NEGATIVE); CLARITY,URINE CLEAR; COLOR,URINE YELLOW; GLUCOSE, URINE (UA) NEGATIVE (NEGATIVE); KETONES,URINE NEGATIVE (NEGATIVE); LEUKOCYTE ESTERASE ,URINE NEGATIVE (NEGATIVE); NITRITE,URINE NEGATIVE (NEGATIVE); PROTEIN,URINE NEGATIVE (NEGATIVE)
[2022-01-09 10:21] LABS: BACTERIA,URINE NEGATIVE /HPF; WBC,URINE RARE /HPF
[2022-01-09 10:22] LABS: SQUAMOUS EPITHELIAL CELL,UR 0-2 /HPF
[2022-01-09 10:31] LABS: ALBUMIN 3.5 GM/DL (3.2-4.5); BILIRUBIN,TOTAL 0.5 MG/DL (0.1-1.0); CALCIUM 8.9 MG/DL (8.5-10.1); CREATININE SERUM 0.57 MG/DL (0.60-1.30); TOTAL PROTEIN 6.9 GM/DL (6.4-8.2); URIC ACID 3.7 MG/DL (2.6-7.2)
[2022-01-09] MEDS ORDERED: LACTATED RINGERS 1,000 ML IV SCH (11:00)
[2022-01-09] MEDS ORDERED: BUTORPHANOL INJ 2 MG/ML (STADOL) VIAL IV ONE ×2 (12:30→16:15)
[2022-01-09] MEDS: D5 LR IV SOLUTION 1,000 ML IV SCH ×2 (12:45→19:45)
--- NOTE | 2022-01-09 13:57 | History & Physical ---
History and Physical Date Seen by Provider: Jan 09, 2022 Time Seen by Provider: 13:54 This patient is a 26-year-old 2 para 1 female who presents with complaint of contractions nausea and vomiting and back pain. She reports that this is the same symptoms she had when she was in labor with her previous that resulted in a delivery right at 37 weeks gestation. She denies rupture membranes or bleeding. She has had some elevated blood pressures to this . Patient denies dysuria or dyschezia she does feel baby movingAnd feels contractions with some regularity Allergies are none Medications are vitamins And Prozac Medical social and surgical history is are per the antepartum record HEENT exam is normal Neck is supple no lymphadenopathy no thyromegaly Abdomen is gravid soft nontender nondistended Extremities show no clubbing cyanosis. There is no Homans' sign. Pelvic exam shows a cervix 3 almost 4 cm dilated as a multiple sort of pill to the presenting part is the vertex there is a intact bag it bulges slightly into the cervix.There is bloody show present as well monitor shows category 1 heart rate tracing with contractions somewhat irregular occasionally 2 to 4 minutes and occasionally 10 to 14 minutes apart Lab work is as follows Laboratory Tests Test 01/09/22 09:50 Range/Units White Blood Count 10.9 4.3-11.0 10^3/uL Red Blood Count 4.13 3.80-5.11 10^6/uL Hemoglobin 12.6 11.5-16.0 g/dL Hematocrit 36 35-52 % Mean Corpuscular Volume 88 80-99 fL Mean Corpuscular Hemoglobin 31 25-34 pg Mean Corpuscular Hemoglobin Concent 35 32-36 g/dL Red Cell Distribution Width 12.2 10.0-14.5 % Platelet Count 287 130-400 10^3/uL Mean Platelet Volume 9.4 9.0-12.2 fL Immature Granulocyte % (Auto) 1 % Neutrophils (%) (Auto) 75 42-75 % Lymphocytes (%) (Auto) 16 12-44 % Monocytes (%) (Auto) 8 0-12 % Eosinophils (%) (Auto) 1 0-10 % Basophils (%) (Auto) 0 0-10 % Neutrophils # (Auto) 8.1 H 1.8-7.8 10^3/uL Lymphocytes # (Auto) 1.8 1.0-4.0 10^3/uL Monocytes # (Auto) 0.9 0.0-1.0 10^3/uL Eosinophils # (Auto) 0.1 0.0-0.3 10^3/uL Basophils # (Auto) 0.0 0.0-0.1 10^3/uL Immature Granulocyte # (Auto) 0.1 0.0-0.1 10^3/uL Urine Color YELLOW Urine Clarity CLEAR Urine pH 7.0 5-9 Urine Specific Joice 1.010 L 1.016-1.022 Urine Protein NEGATIVE NEGATIVE Urine Glucose (UA) NEGATIVE NEGATIVE Urine Ketones NEGATIVE NEGATIVE Urine Nitrite NEGATIVE NEGATIVE Urine Bilirubin NEGATIVE NEGATIVE Urine Urobilinogen 0.2 < = 1.0 MG/DL Urine Leukocyte Esterase NEGATIVE NEGATIVE Urine RBC (Auto) 3+ H NEGATIVE Urine RBC 2-5 H /HPF Urine WBC RARE /HPF Urine Squamous Epithelial Cells 0-2 /HPF Urine Crystals NONE /LPF Urine Bacteria NEGATIVE /HPF Urine Casts NONE /LPF Urine Mucus NEGATIVE /LPF Urine Culture Indicated NO Urine Creatinine 51 30-125 MG/DL Urine Protein/Creatinine Ratio 0.16 Sodium Level 138 135-145 MMOL/L Potassium Level 4.0 3.6-5.0 MMOL/L Chloride Level 106 98-107 MMOL/L Carbon Dioxide Level 19 L 21-32 MMOL/L Anion Gap 13 5-14 MMOL/L Blood Urea Nitrogen 4 L 7-18 MG/DL Creatinine 0.57 L 0.60-1.30 MG/DL Estimat Glomerular Filtration Rate 130 BUN/Creatinine Ratio 7 Glucose Level 84 70-105 MG/DL Uric Acid 3.7 2.6-7.2 MG/DL Calcium Level 8.9 8.5-10.1 MG/DL Corrected Calcium 9.3 8.5-10.1 MG/DL Total Bilirubin 0.5 0.1-1.0 MG/DL Aspartate Amino Transf (AST/SGOT) 15 5-34 U/L Alanine Aminotransferase (ALT/SGPT) 15 0-55 U/L Alkaline Phosphatase 69 40-136 U/L Lactate Dehydrogenase 169 125-220 U/L Total Protein 6.9 6.4-8.2 GM/DL Albumin 3.5 3.2-4.5 GM/DL Assessment and plan 36-3/7 weeks gestation with labor and progressive cervical change and signs and symptoms indicating labor. Plan is for admission we will proceed with amniotomyAs patient has been gradually making change since the period of observation since admission. We anticipate a vaginal delivery labor at 36+ weeks gestation Allergies and Home Medications Allergies Coded Allergies: No Known Drug Allergies (Unverified , 12/15/18) Patient Home Medication List Home Medication List Reviewed: Yes Acetaminophen (Acetaminophen) 500 Mg Tablet, 1,000 MG PO Q8HR Prescribed by: KAUSHAL DESAI on 12/16/181847 Fluoxetine HCl (Prozac) 20 Mg Capsule, 20 MG PO DAILY, (Reported) Entered as Reported by: ROBB DEUTSCH on 01/02/22 0928 Last Action: Reviewed [id number]/FA/Omega3/Dha/Fish Oil ( Gummies) 1 Each Tab.chew, 2 EACH PO DAILY, (Reported) Entered as Reported by: FADUMO MCKEON on 11/29/18 1019 Last Action: Reviewed Discontinued Medications Cephalexin (Cephalexin) 250 Mg Capsule, 500 MG PO BID Discontinued Reason: No Longer Taking Prescribed by: KAUSHAL DESAI on 12/16/181847 Ibuprofen (Ibu) 600 Mg Tablet, 600 MG PO Q6HR Discontinued Reason: No Longer Taking Prescribed by: KAUSAHL DESAI on 12/16/181847 Ibuprofen (Ibuprofen) 800 Mg Tablet, 800 MG PO Q8H PRN for PAIN Discontinued Reason: No Longer Taking Prescribed by: XAVIER PEÑALOZA on 07/16/19 1323 Tizanidine HCl (Zanaflex) 4 Mg Tablet, 4 MG PO Q8H PRN for MUSCLE SPASMS Discontinued Reason: No Longer Taking Prescribed by: XAVIER PEÑALOZA on 07/16/19 1323 GREGG FREEDMAN MD Jan 09, 2022 13:57
[2022-01-09] MEDS ORDERED: OXYTOCIN PRE-MIX DRIP 500 ML IV SCH ×2 (14:00→20:15)
[2022-01-09] MEDS ORDERED: OXYC-199 PO (14:01)
[2022-01-09] MEDS ORDERED: DOCU-143 PO (14:01)
[2022-01-09] MEDS ORDERED: IBUP-1780 PO (14:01)
--- NOTE | 2022-01-09 14:02 | Discharge Inst-Surgical ---
Discharge Inst-Surgical Depart Medication/Instructions New, Converted or Re-Newed RX: Transmitted to Pharmacy Consults/Follow Up Patient Instructions: As directed Orders & Referrals Follow Up Appt: Call to make follow up appt. for patient in 4 weeks. Activity Per routine post vaginal delivery instructions. Diet as tolerated Patient may shower or tub bathe as desired. Activity Activity as Tolerated: No Diet Discharge Diet: No Restrictions GREGG FREEDMAN MD Jan 09, 2022 14:02
[2022-01-09] MEDS ORDERED: BUTORPHANOL INJ 2 MG/ML (STADOL) VIAL ONE (16:14)
[2022-01-09] MEDS ORDERED: ONDANSETRON 4 MG/2 ML (SDV) Z0FRAN ONE (17:27)
[2022-01-09] MEDS ORDERED: LIDOCAINE 1% INJ 20 ML VIAL ONE (19:26)
[2022-01-09] MEDS ORDERED: NALOXONE 0.4 MG/ML 1 ML (NARCAN) VIAL IV PRN (20:15)
[2022-01-09] MEDS ORDERED: TETANUS,DIPTH,PERTUSS P/F (BOOSTRIX) 0.5 ML VIAL IM ONE (20:15)
[2022-01-09] MEDS ORDERED: BENZOCAINE/MENTHOL (DERMOPLAST) 56 ML CAN TP PRN (20:15)
[2022-01-09] MEDS ORDERED: KETOROLAC 30 MG/ML VIAL ONE (20:41)
[2022-01-09] MEDS: KETOROLAC 30 MG/ML VIAL IV SCH (20:44)
[2022-01-09] MEDS ORDERED: ONDANSETRON 4 MG/2 ML (SDV) Z0FRAN IVP ONE (21:00)
[2022-01-10 00:09] VITALS: BP 120/56
[2022-01-10] MEDS: ACETAMINOPHEN 500 MG TAB (TYLENOL) PO SCH ×5 (00:11→23:12)
[2022-01-10] MEDS: KETOROLAC 30 MG/ML VIAL IV SCH ×2 (02:52→09:04)
--- NOTE | 2022-01-10 03:01 | OPERATIVE REPORT ---
DATE OF SERVICE: 01/09/2022 DELIVERY NOTE The patient delivered by precipitous spontaneous vaginal delivery of a viable male infant with Apgars of 8 and 9 at 1 and 5 minutes respectively. Weight that is 7 pounds 2 ounces, cord blood pH is pending. time of 1725. The infant was delivered precipitously 2 minutes before my arrival. The patient had uncontrollable urge to push and expelled the baby with 1 push. As I entered the room, the baby was then placed on mom's abdomen. The umbilical cord was quickly pulseless, it was doubly clamped, and father cut the cord. Baby remained on mom's abdomen. Cord bloods were obtained and the placenta delivered fairly promptly spontaneously Yaneth. It was normal with a 3-vessel cord. The cervix, vagina, rectum, and perineum were examined and found intact. Blood loss was around 150 mL for the delivery. Sponge and needle counts were correct on completion of the delivery and the post-delivery inspection. The patient remained in the LDR for recovery. The baby remained with the mom. Job ID: [id number] DocumentID: [id number] Dictated Date: 01/09/2022 19:57:41 Edge Banding Off Bearer Date: 01/10/2022 03:00:46 Dictated By: GREGG FREEDMAN MD MTDD
[2022-01-10 04:29] VITALS: BP 120/65
--- NOTE | 2022-01-10 06:54 | Progress Note ---
Standard Progress Note Progress Notes/Assess & Plan Date Seen by a Provider: Jan 10, 2022 Time Seen by a Provider: 06:53 Progress/Assessment & Plan This patient is without complaint. She is ambulating, voiding, tolerating oral intake has good pain control. Vital Signs Date Time Temp Pulse Resp B/P (MAP) Pulse Ox O2 Delivery O2 Flow Rate FiO2 01/10/22 04:29 35.9 85 16 120/65 (83) 98 Room Air 01/10/22 00:09 36.5 86 3 120/56 (77) 98 Room Air 01/09/22 21:02 80 18 96 Room Air 01/09/22 20:59 75 124/62 (82) Room Air 01/09/22 20:28 73 121/68 (85) Room Air 01/09/22 20:10 83 121/64 (83) Room Air 01/09/22 19:54 78 123/58 (79) Room Air 01/09/22 19:47 36.3 80 18 124/62 (82) Room Air 01/09/22 19:10 84 125/72 (89) 01/09/22 18:55 37.5 112 132/78 (96) 01/09/22 18:40 95 139/71 (93) 01/09/22 18:25 78 129/65 (86) 01/09/22 18:10 87 125/71 (89) 01/09/22 17:55 97 124/66 (85) 01/09/22 17:45 88 130/85 (100) 01/09/22 17:10 36.5 67 121/72 (88) 01/09/22 16:55 67 125/72 (89) 01/09/22 16:40 63 120/67 (84) 01/09/22 16:25 69 116/62 (80) 01/09/22 16:10 72 112/56 (74) 01/09/22 15:55 75 113/57 (75) 01/09/22 15:40 64 110/59 (76) 01/09/22 15:25 74 109/60 (76) 01/09/22 15:10 72 115/64 (81) 01/09/22 14:55 75 112/62 (79) 01/09/22 14:40 75 112/64 (80) 01/09/22 14:00 36.8 80 107/66 (80) 01/09/22 10:34 36.4 83 18 96 Room Air I & O 01/10/22 07:00 Intake Total 3500 ml Balance 3500 ml Vital signs are stable. Patient is afebrile. The abdomen is benign. Fundus is firm below the umbilicus and nontender. Extremities show no clubbing or cyanosis. There is no Homans' sign. Assessment and plan day1 doing well. Plans for routine convalescent care GREGG FREEDMAN MD Jan 10, 2022 06:54
[2022-01-10 08:30] VITALS: BP 133/66
[2022-01-10 13:00] VITALS: BP 120/57
[2022-01-10 17:59] VITALS: BP 117/56
[2022-01-10] MEDS: IBUPROFEN 800 MG (MOTRIN) TAB PO SCH (19:06)
[2022-01-10] MEDS ORDERED: IBUPROFEN 800 MG (MOTRIN) TAB PO SCH (20:15)
[2022-01-11 00:21] VITALS: BP 119/67
[2022-01-11] MEDS: IBUPROFEN 800 MG (MOTRIN) TAB PO SCH (03:21)
[2022-01-11] MEDS: ACETAMINOPHEN 500 MG TAB (TYLENOL) PO SCH (03:22)
[2022-01-11 05:51] VITALS: BP 134/77
--- NOTE | 2022-01-11 08:06 | Progress Note ---
Standard Progress Note Progress Notes/Assess & Plan Date Seen by a Provider: Jan 11, 2022 Time Seen by a Provider: 08:05 Progress/Assessment & Plan This patient is without complaint. She is ambulating, voiding, tolerating oral intake has good pain control. Vital Signs Date Time Temp Pulse Resp B/P (MAP) Pulse Ox O2 Delivery O2 Flow Rate FiO2 01/10/22 04:29 35.9 85 16 120/65 (83) 98 Room Air 01/10/22 00:09 36.5 86 3 120/56 (77) 98 Room Air 01/09/22 21:02 80 18 96 Room Air 01/09/22 20:59 75 124/62 (82) Room Air 01/09/22 20:28 73 121/68 (85) Room Air 01/09/22 20:10 83 121/64 (83) Room Air 01/09/22 19:54 78 123/58 (79) Room Air 01/09/22 19:47 36.3 80 18 124/62 (82) Room Air 01/09/22 19:10 84 125/72 (89) 01/09/22 18:55 37.5 112 132/78 (96) 01/09/22 18:40 95 139/71 (93) 01/09/22 18:25 78 129/65 (86) 01/09/22 18:10 87 125/71 (89) 01/09/22 17:55 97 124/66 (85) 01/09/22 17:45 88 130/85 (100) 01/09/22 17:10 36.5 67 121/72 (88) 01/09/22 16:55 67 125/72 (89) 01/09/22 16:40 63 120/67 (84) 01/09/22 16:25 69 116/62 (80) 01/09/22 16:10 72 112/56 (74) 01/09/22 15:55 75 113/57 (75) 01/09/22 15:40 64 110/59 (76) 01/09/22 15:25 74 109/60 (76) 01/09/22 15:10 72 115/64 (81) 01/09/22 14:55 75 112/62 (79) 01/09/22 14:40 75 112/64 (80) 01/09/22 14:00 36.8 80 107/66 (80) 01/09/22 10:34 36.4 83 18 96 Room Air I & O 01/10/22 07:00 Intake Total 3500 ml Balance 3500 ml Vital signs are stable. Patient is afebrile. The abdomen is benign. Fundus is firm below the umbilicus and nontender. Extremities show no clubbing or cyanosis. There is no Homans' sign. Assessment and plan day1 doing well. Plans for routine convalescent care January 11, 2023 Patient without complaint. She is ambulating, voiding, tolerating oral intake well and has good pain control. Patient is requesting discharge home. Vital Signs Date Time Temp Pulse Resp B/P (MAP) Pulse Ox O2 Delivery O2 Flow Rate FiO2 01/11/22 05:51 36.2 81 18 134/77 (96) 97 01/11/22 00:21 36.6 69 16 119/67 (84) 96 Room Air 01/10/22 17:59 36.4 71 18 117/56 (76) 96 Room Air 01/10/22 13:00 36.3 79 18 120/57 (78) 97 Room Air 01/10/22 08:30 36.6 75 18 133/66 (88) 98 Room Air Vital signs are stable. Patient is afebrile. Fundus is firm below the umbilicus and none tender. Extremities show no clubbing or cyanosis. No Homans' sign. Pelvic exam was deferred Assessment and plan day #2 status post 36-week spontaneous vaginal delivery doing well. Plans for discharge home with follow-up in clinic Final Diagnosis 36-week spontaneous vaginal delivery GREGG FREEDMAN MD Jan 11, 2022 08:05
[2022-01-11 08:08] VITALS: BP 132/84
[2022-01-11 14:35] VITALS: BP 132/84
== END 2022-01-11 14:40 | disposition home or self-care (01) | DRG 807 ==
LOC: WSo 09:36 → LDRP 09:36 → WSo 13:51 → LDRP 14:50
PROVIDERS: ADMIT Obstetrics & Gynecology; ATTEND Obstetrics & Gynecology
PROC: 10E0XZZ Delivery of Products of Conception, External Approach (ICD-10-PCS; principal; 2022-01-09)
PROC: 10907ZC Drainage of Amniotic Fluid, Therapeutic from Products of Conception, Via Natural or Artificial Opening (ICD-10-PCS; 2022-01-09)
DX: O60.14X0 Preterm labor third trimester with preterm delivery third trimester, not applicable or unspecified (principal); Z37.0 Single live birth; Z3A.36 36 weeks gestation of pregnancy; O62.3 Precipitate labor; Z28.310 Unvaccinated for COVID-19; O99.344 Other mental disorders complicating childbirth; F32.A Depression, unspecified; Z79.899 Other long term (current) drug therapy
CPT/HCPCS: 36415; 80053; 81000; 82570; 83615; 84156; 84550; 85025; 86850; 86900; 86901; 99212

== ENCOUNTER 2022-02-18 16:19 | Emergency (ER) | payer BC, MEDICAID ==
[~2022-02-18] VITALS: Ht 172.7 cm; Wt 100.8 kg
[~2022-02-18 16:19] MED LIST changes: +DOCU-143 PO; +OXYC-199 PO
--- NOTE | 2022-02-18 16:33 | ED GU-Female ---
General Chief Complaint: - Reproductive Stated Complaint: ABNORMAL VAGINAL BLEEDING Source: patient Exam Limitations: no limitations History of Present Illness Date Seen by Provider: Feb 18, 2022 Time Seen by Provider: 16:33 Initial Comments 26-year-old female presents the emergency department today for vaginal bleeding. She is status post spontaneous vaginal delivery on 01/09. She had subsequently stopped bleeding but on Thursday started bleeding lightly. Over the last couple of days it is progressed to more significant bleeding. She states she is changing a pad about every hour and a half. She denies any dizziness lightheadedness or shortness of breath. No abdominal pain. She had an uncomplicated delivery. Did not have an episiotomy or require stitches of any kind. She has had a pelvic exam at her primary doctor's office on Thursday prior to the start of his current bleeding. She states everything was normal at that time. Allergies and Home Medications Allergies Coded Allergies: No Known Drug Allergies (Unverified , 12/15/18) Patient Home Medication List Home Medication List Reviewed: Yes Docusate Sodium (Colace) 100 Mg Capsule, 100 MG PO BID Prescribed by: GREGG PHIPPS on 01/09/22 1401 Fluoxetine HCl (Prozac) 20 Mg Capsule, 20 MG PO DAILY, (Reported) Entered as Reported by: ROBB DEUTSCH on 01/02/22 0928 Ibuprofen (Ibuprofen) 800 Mg Tablet, 800 MG PO Q6H PRN for PAIN Prescribed by: GREGG PHIPPS on 01/09/22 1401 Oxycodone HCl/Acetaminophen (Percocet 5-325 mg Tablet) 5 Mg-325 Mg Tablet, 1 TAB PO Q4H PRN for PAIN-MODERATE Prescribed by: GREGG PHIPPS on 01/09/22 1402 Liu229/FA/Omega3/Dha/Fish Oil ( Gummies) 1 Each Tab.chew, 2 EACH PO DAILY, (Reported) Entered as Reported by: FADUMO MCKEON on 11/29/18 1019 Review of Systems Review of Systems Constitutional: no symptoms reported EENTM: no symptoms reported Respiratory: no symptoms reported Cardiovascular: no symptoms reported Gastrointestinal: no symptoms reported Genitourinary: no symptoms reported Musculoskeletal: no symptoms reported Skin: no symptoms reported Psychiatric/Neurological: No Symptoms Reported Endocrine: No Symptoms Reported Hematologic/Lymphatic: No Symptoms Reported Past Owtlzbf-Vesqvh-Duzwkb Hx Patient Social History Tobacco Use?: No Use of E-Cig and/or Vaping dev: No Substance use?: No Alcohol Use?: No Seasonal Allergies Seasonal Allergies: No Past Medical History Surgeries: No Respiratory: Yes Asthma Cardiac: No Neurological: No Sexually Transmitted Disease: No Genitourinary: No Gastrointestinal: No Musculoskeletal: No Endocrine: No HEENT: No Cancer: No Psychosocial: No Integumentary: No Blood Disorders: Yes (anemia) Family Medical History Reviewed Nursing Family Hx FH: blood disorder (tendency to bleed easy) 19 MOTHER FH: migraine headache 19 MOTHER Hypertension 19 FATHER No Pertinent Family Hx Physical Exam Vital Signs Vital Signs - First Documented 02/18/22 16:20 Temp 35.8 Pulse 74 Resp 20 B/P (MAP) 149/100 (116) Pulse Ox 98 O2 Delivery Room Air Capillary Refill : Height, Weight, BMI Height: 5'8.00" Weight: 231lbs. 4.0oz. 104.085434hp; 35.84 BMI Method:Stated General Appearance: no apparent distress HEENT: normal ENT inspection, TMs normal, pharynx normal Neck: non-tender, full range of motion, supple, normal inspection Cardiovascular: regular rate, rhythm, no edema, no gallop, no JVD, no murmur Respiratory: chest non-tender, lungs clear, normal breath sounds, no respiratory distress, no accessory muscle use Gastrointestinal: normal bowel sounds, non tender, soft, no organomegaly, no pulsatile mass Pelvic: normal external exam, no cerv. motion tender, no masses, other (40 small abrasion left lower cervix and on for 5 o'clock position. Minimal bleeding at this time.) Back: normal inspection, no CVA tenderness, no vertebral tenderness Extremities: normal range of motion, non-tender, normal inspection, no pedal edema, no calf tenderness Neurologic/Psychiatric: alert, normal mood/affect, oriented x 3 Skin: normal color, warm/dry Lymphatic: no adenopathy Progress/Results/Core Measures Suspected Sepsis SIRS Temperature: Pulse: Respiratory Rate: Laboratory Tests 02/18/22 16:43: White Blood Count 8.7 Blood Pressure / Mean: Laboratory Tests 02/18/22 16:43: Platelet Count 326 Results/Orders Lab Results Laboratory Tests Test 02/18/22 16:43 Range/Units White Blood Count 8.7 4.3-11.0 10^3/uL Red Blood Count 4.42 3.80-5.11 10^6/uL Hemoglobin 13.2 11.5-16.0 g/dL Hematocrit 38 35-52 % Mean Corpuscular Volume 86 80-99 fL Mean Corpuscular Hemoglobin 30 25-34 pg Mean Corpuscular Hemoglobin Concent 35 32-36 g/dL Red Cell Distribution Width 11.3 10.0-14.5 % Platelet Count 326 130-400 10^3/uL Mean Platelet Volume 9.0 9.0-12.2 fL Immature Granulocyte % (Auto) 0 % Neutrophils (%) (Auto) 57 42-75 % Lymphocytes (%) (Auto) 34 12-44 % Monocytes (%) (Auto) 8 0-12 % Eosinophils (%) (Auto) 1 0-10 % Basophils (%) (Auto) 1 0-10 % Neutrophils # (Auto) 5.0 1.8-7.8 10^3/uL Lymphocytes # (Auto) 2.9 1.0-4.0 10^3/uL Monocytes # (Auto) 0.7 0.0-1.0 10^3/uL Eosinophils # (Auto) 0.1 0.0-0.3 10^3/uL Basophils # (Auto) 0.0 0.0-0.1 10^3/uL Immature Granulocyte # (Auto) 0.0 0.0-0.1 10^3/uL My Orders Orders - MAYCORALPH Michele DO Cbc With Automated Diff (02/18/22 16:32) Hcg,Qualitative Serum (02/18/22 16:32) Vital Signs/I&O 02/18/22 16:20 Temp 35.8 Pulse 74 Resp 20 B/P (MAP) 149/100 (116) Pulse Ox 98 O2 Delivery Room Air Capillary Refill : Departure Communication (Admissions) Patient is hemodynamically stable. Hemoglobin is normal. Vital signs are norm al and exam is reassuring. Pelvic exam shows no obvious significant bleeding. She is discharged in stable condition with close follow-up. Advised to follow- up with her OB in the next 24 to 48 hours should her symptoms persist. Impression Primary Impression: Vaginal bleeding Disposition: 01 HOME, SELF-CARE Condition: Stable Departure-Patient Inst. Referrals: [facility] (PCP) Primary Care Physician AD VALDEZ APRN (Family) Primary Care Physician GREGG FREEDMAN MD Add. Discharge Instructions: Follow-up with Dr. FREEDMAN in the next 24 to 48 hours should your bleeding continue. Your hemoglobin is stable and your vital signs are reassuring. Return to the emergency department for any severe concerns. Follow-up with your primary physician for any nonemergent needs All discharge instructions reviewed with patient and/or family. Voiced understanding. RALPH MAO DO Feb 18, 2022 16:33
[2022-02-18 16:46] LABS: BASOPHILS % (AUTO) 1 % (0-10); EOSINOPHILS # (AUTO) 0.1 10^3/uL (0.0-0.3); EOSINOPHILS % (AUTO) 1 % (0-10); HEMATOCRIT 38 % (35-52); HEMOGLOBIN 13.2 g/dL (11.5-16.0); LYMPHOCYTES # (AUTO) 2.9 10^3/uL (1.0-4.0); LYMPHOCYTES % (AUTO) 34 % (12-44); MEAN CORPUSCULAR HEMOGLOBIN 30 pg (25-34); MEAN CORPUSCULAR HGB CONC 35 g/dL (32-36); MEAN CORPUSCULAR VOLUME 86 fL (80-99); MONOCYTES # (AUTO) 0.7 10^3/uL (0.0-1.0); MONOCYTES % (AUTO) 8 % (0-12); NEUTROPHILS % (AUTO) 57 % (42-75); PLATELET COUNT 326 10^3/uL (130-400); WHITE BLOOD COUNT 8.7 10^3/uL (4.3-11.0)
[2022-02-18 17:10] VITALS: BP 129/85
== END 2022-02-18 17:11 | disposition home or self-care (01) ==
LOC: EDUNIT# 16:19 → ER FS 16:20
DX: N93.9 Abnormal uterine and vaginal bleeding, unspecified (principal); Z28.310 Unvaccinated for COVID-19
CPT/HCPCS: 36415; 85025

== ENCOUNTER 2022-03-13 11:06 | Emergency (ER) | payer BC, MEDICAID ==
[~2022-03-13] VITALS: Ht 172.7 cm; Wt 101.0 kg
[2022-03-13] MEDS ORDERED: cefTRIAXone 1,000 MG VIAL IM STA (11:17)
[2022-03-13] MEDS ORDERED: LIDOCAINE 1% INJ 20 ML VIAL INJ STA (11:17)
--- NOTE | 2022-03-13 11:25 | ED Integumentary General ---
General Chief Complaint: Skin/Wound Problems Stated Complaint: LT FINGER INFECTION Source: patient History of Present Illness Date Seen by Provider: Mar 13, 2022 Time Seen by Provider: 11:09 Initial Comments 26 yo female presenting with complaint of increasing pain, swelling and redness spreading up her hand from infection to left ring finger. She had been seen in Urgent care on Thursday and was started on antibiotic that starts with "S", however review of external pharmacy records show she was prescribed Cephalexin 500 mg TID x 5 days on Thursday. She has taken that the last 2 days but not seen improvement. Since she felt it was worse today and was causing more pain she came to ED to be seen. She follows with Ad Valdez for primary care. She denies any other chronic medical conditions other than depression for which she takes fluoxetine. She denies any allergies to medications. She denies having previous infections like this of her finger. She denies fever, chills, nausea, vomiting, headache, body aches. There has been no drainage from the swelling on the finger. 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 and that has been making the finger worse.) Associated Symptoms: No blisters, No edema, No fever, No flushing, No headache, No hives, No jaundice, No malaise, No nasal congestion, No numbness, No pallor, No paresthesia, No petechiae, No rash, No sore throat, No swelling/mass/lumps, No tingling Allergies and Home Medications Allergies Coded Allergies: No Known Drug Allergies (Unverified , 12/15/18) Patient Home Medication List Home Medication List Reviewed: Yes Amoxicillin/Potassium Clav (Amox Tr-K Clv 875-125 mg Tab) 875 Mg-125 Mg Tablet, 1 EACH PO BID Prescribed by: XAVIER PEÑALOZA on 03/13/22 1135 Docusate Sodium (Colace) 100 Mg Capsule, 100 MG PO BID Prescribed by: GREGG PHIPPS on 01/09/22 1401 Fluoxetine HCl (Prozac) 20 Mg Capsule, 20 MG PO DAILY, (Reported) Entered as Reported by: ROBB DEUTSCH on 01/02/22 0928 Ibuprofen (Ibuprofen) 800 Mg Tablet, 800 MG PO Q6H PRN for PAIN Prescribed by: GREGG PHIPPS on 01/09/22 1401 Oxycodone HCl/Acetaminophen (Percocet 5-325 mg Tablet) 5 Mg-325 Mg Tablet, 1 TAB PO Q4H PRN for PAIN-MODERATE Prescribed by: GREGG PHIPPS on 01/09/22 1402 Xzr459/FA/Omega3/Dha/Fish Oil ( Gummies) 1 Each Tab.chew, 2 EACH PO DAILY, (Reported) Entered as Reported by: FADUMO MCKEON on 11/29/18 1019 Review of Systems Review of Systems Constitutional: No chills, No fever EENTM: no symptoms reported Respiratory: no symptoms reported Cardiovascular: no symptoms reported Gastrointestinal: no symptoms reported Genitourinary: no symptoms reported Musculoskeletal: no symptoms reported Skin: see HPI, change in color Psychiatric/Neurological: Denies Numbness, Denies Paresthesia Past Tpjbzoa-Xbiddf-Cckypa Hx Patient Social History Tobacco Use?: No Use of E-Cig and/or Vaping dev: No Substance use?: No Alcohol Use?: No Pt feels they are or have been: No Seasonal Allergies Seasonal Allergies: No Past Medical History Surgery/Hospitalization HX: Depression, Hypertension during Surgeries: No Respiratory: Yes Asthma Cardiac: No Neurological: No Sexually Transmitted Disease: No Genitourinary: No Gastrointestinal: No Musculoskeletal: No Endocrine: No HEENT: No Cancer: No Psychosocial: No Integumentary: No Blood Disorders: Yes (anemia) Family Medical History FH: blood disorder (tendency to bleed easy) 19 MOTHER FH: migraine headache 19 MOTHER Hypertension 19 FATHER No Pertinent Family Hx Physical Exam Vital Signs Vital Signs - First Documented 03/13/22 11:20 Temp 36.0 Pulse 78 Resp 14 B/P (MAP) 129/81 (97) Pulse Ox 98 O2 Delivery Room Air Capillary Refill : General Appearance: WD/WN, no apparent distress Cardiovascular: normal peripheral pulses Extremities: normal capillary refill, inflammation (left ring finger around the nail is red, swollen and tender), other (decreased ROM of the left ring finger due to pain and swelling) Skin: warm/dry Skin Problem Location: upper extremities (left ring finger red and swollen around nail with redness extending up on to her hand) Skin Problem Character: erythema, swelling, tenderness Procedures/Interventions I&D : Site: left ring finger Blade Size: 11 I & D Procedure: sterile dressing applied Progress After obtaining verbal consent from patient the wound was cleaned with chlorhexidine and alcohol. A digital ring block was placed by infiltrating 4 mL of 1 % Lidocaine at base of finger. Then an 11 blade scalpel was used to make a small incision on the side of the finger. She had moderate amount of purulent drainage and blood from incision and from cuticle area of nail. Wound culture obtained and sent to lab. Patient tolerated procedure well but did feel light headed after the procedure. She was given a cool wash clothe and allowed to lay her head down on the exam table. She was feeling better after a few minutes. A sterile bulky dressing was applied along with antibiotic ointment. Counseled on management of finger wound/infection and follow up and return precautions. Progress/Results/Core Measures Results/Orders My Orders Orders - XAVIER PEÑALOZA MD Lidocaine 1% Inj 20 Ml (Xylocaine 1% Inj (03/13/22 11:17) Wound Culture (03/13/22 11:17) Wound Dressing-Ed (03/13/22 11:17) Ceftriaxone (Rocephin) (03/13/22 11:17) Lidocaine 1% Inj 20 Ml (Xylocaine 1% Inj (03/13/22 11:30) Medications Given in ED Current Medications Medications Dose Ordered Sig/Eddie Route Start Time Stop Time Status Last Admin Dose Admin Lidocaine HCl 2.1 ml ONCE ONCE INJ 03/13/22 11:30 03/13/22 11:31 DC 03/13/22 11:43 2.1 ML Vital Signs/I&O 03/13/22 11:20 Temp 36.0 Pulse 78 Resp 14 B/P (MAP) 129/81 (97) Pulse Ox 98 O2 Delivery Room Air Progress Progress Note : Progress Note Verbally consented patient to perform an I&D to see if there might be any pus to drain from what appears to be a paronychia. Administer Rocephin 1 g IM since she was not having improvement taking oral antibiotics. Hemodynamically she is stable and not showing signs of sepsis. Will switch antibiotics to Augmentin for stronger and broader coverage than the cephalexin. Encouraged to do hot packs or warm soaks of the finger and to check back with the clinic. If she has continued worsening of symptoms despite the switch in antibiotics after 2 to 3 days and she should return or seek medical care for evaluation again. At that point she might require IV antibiotics or admission if its not improving. Departure Impression Primary Impression: Paronychia of left ring finger Disposition: 01 HOME, SELF-CARE Condition: Stable Departure-Patient Inst. Decision time for Depature: 12:11 Referrals: AD VALDEZ APRN (PCP) Primary Care Physician [facility] (Family) Primary Care Physician Patient Instructions: Paronychia ED, Cellulitis (Skin Infection), Adult ED, Wound Incision and Drainage Add. Discharge Instructions: Stop taking the Cephalexin antibiotic and change to Augmentin (a boosted amoxicillin). Keep dressing on finger for next 1-2 days as it may bleed initially after the procedure in the Emergency Department today. You could apply a hot pack or heat to the finger to help with healing and increasing blood flow to help with getting antibiotic to the wound and infection. If still not seeing any improvement after 2-3 days of the new antibiotic then return or seek medical care as you may need IV antibiotics to clear the infection. All discharge instructions reviewed with patient and/or family. Voiced understanding. Scripts Amoxicillin/Potassium Clav (Amox Tr-K Clv 875-125 mg Tab) 875 Mg-125 Mg Tablet 1 EACH PO BID for Finger infection for 10 Days, #20 TAB 0 Refills Prov: XAVIER PEÑALOZA MD 03/13/22 Work/School Note: Work Release Form Date Seen in the Emergency Department: Mar 13, 2022 Return to Work: Mar 13, 2022 Other Restrictions Listed Below: Limited use of left hand due to dressing/infection ring finger x7 days XAVIER PEÑALOZA MD Mar 13, 2022 11:25
[2022-03-13] MEDS ORDERED: LIDOCAINE 1% INJ 20 ML VIAL INJ ONE (11:30)
[2022-03-13] MEDS ORDERED: AMOX1TAB12 PO ×2 (11:33→11:35)
[2022-03-13 12:17] VITALS: BP 129/81
== END 2022-03-13 12:17 | disposition home or self-care (01) ==
LOC: EDUNIT# 11:06 → ER FS 11:07
DX: L03.012 Cellulitis of left finger (principal); Z28.310 Unvaccinated for COVID-19
CPT/HCPCS: 87070; 87077; 87205; 99285

== ENCOUNTER → 2022-09-16 | Outpatient (CLI) | payer BC, MEDICAID ==
[~2022-09-16] MED LIST changes: +AMOX1TAB12 PO
--- NOTE | 2022-09-16 09:53 | Diagnostic Imaging Report ---
INDICATION: Supervision of normal . Anatomy scan. TECHNIQUE: Multiple real-time grayscale images were obtained over the gravid uterus. COMPARISON: None. FINDINGS: A single live intrauterine gestation is visualized in breech presentation. heart tones measure 143 bpm. The KEVIN is normal measuring 15 cm. The placenta is anterior and not low-lying. The cervix is closed and measures 4.9 cm in length. The kidneys, bladder, stomach, brain, four-chamber heart, three-vessel cord, spine, and cord insertion are visualized and have a normal sonographic appearance. Views of the adnexa are unremarkable. Biometrical measurements are as follows: Biparietal 4.51 cm, age 19 weeks 5 days. Head circumference 16.81 cm, age 19 weeks 4 days. Abdominal circumference 13.64 cm, age 19 weeks 1 days. Femur length 3.04 cm, age 19 weeks 3 days. Sonographic estimate age: 19 weeks 4 days. Sonographic estimated date of delivery: 02/06/2023. Estimated Weight: 283 gm (+/- 41 gm). LMP percentile: 22%. heart rate: 143 beats per minute. number: 1 of 1. IMPRESSION: 1. Single live intrauterine gestation measuring 19 weeks 4 days with an estimated due date of 02/06/2023. These are within range of the clinical dates. 2. Breech presentation. Recommend followup as indicated. 3. Unremarkable anatomy scan. No abnormalities are identified. Dictated by: Dictated on workstation # [id number]
== END ==
LOC: RAD FS 07:56
PROVIDERS: ATTEND Nurse Practitioner Women's Health
DX: Z34.02 Encounter for supervision of normal first pregnancy, second trimester (principal); Z3A.19 19 weeks gestation of pregnancy
CPT/HCPCS: 76805

== ENCOUNTER → 2022-10-21 | Outpatient (CLI) | payer BC, MEDICAID | LOC: LABNPT 16:54 | PROVIDERS: ATTEND Nurse Practitioner Women's Health | DX: O13.9 Gestational [pregnancy-induced] hypertension without significant proteinuria, unspecified trimester (principal); Z3A.00 Weeks of gestation of pregnancy not specified | CPT/HCPCS: 82570; 84156 ==

== ENCOUNTER → 2022-12-25 | Outpatient (CLI) | payer BC, MEDICAID | LOC: LABNPT 16:20 | PROVIDERS: ATTEND Nurse Practitioner Women's Health | DX: O13.9 Gestational [pregnancy-induced] hypertension without significant proteinuria, unspecified trimester (principal); Z3A.00 Weeks of gestation of pregnancy not specified | CPT/HCPCS: 82570; 84156 ==

== ENCOUNTER 2023-01-05 13:53 | Outpatient (CLI) | payer BC, MEDICAID ==
[2023-01-05] VITALS (10 sets, daily range): BP systolic 115–132; BP diastolic 59–81
[~2023-01-05] VITALS: Ht 172.7 cm; Wt 116.9 kg
[2023-01-05] MEDS ORDERED: PROCHLORPERAZINE 10 MG TABLET PO ONE (15:30)
[2023-01-05 15:39] LABS: CLARITY,URINE CLEAR; COLOR,URINE YELLOW; PH,URINE 6.5 (5-9)
[2023-01-05 15:40] LABS: BACTERIA,URINE TRACE /HPF; BILIRUBIN,URINE NEGATIVE (NEGATIVE); GLUCOSE, URINE (UA) NEGATIVE (NEGATIVE); KETONES,URINE NEGATIVE (NEGATIVE); LEUKOCYTE ESTERASE ,URINE NEGATIVE (NEGATIVE); NITRITE,URINE NEGATIVE (NEGATIVE); PROTEIN,URINE NEGATIVE (NEGATIVE)
--- NOTE | 2023-01-05 17:09 | OB Triage Report ---
Standard Progress Note Progress Notes/Assess & Plan Date Seen by a Provider: Jan 05, 2023 Time Seen by a Provider: 16:00 Expected Date of Delivery: Feb 05, 2023 Gestational Age in Weeks: 35 Gestational Age in Days: 4 LMP/CLAU Comment: This 27yo Presents to L&D with c/o Headaches (Has HO migraines) and lowback pain and pressure FHR 120s Reactive TOCOs none BP 132/81 Labs reviewed Progress/Assessment & Plan IUP @ 35w4d RNST YUNG-Compazine 5mg po DC to home Keep next appt. Diagnosis/Problems Diagnosis/Problems (1) Onset Date: ~ 12/2022 Status: Acute Qualifiers: Qualified Codes: Z3A.35 - 35 weeks gestation of (2) Head ache Status: Chronic JARED DALEY DO Jan 05, 2023 17:09
== END 2023-01-05 18:00 | disposition home or self-care (01) ==
LOC: LDRP 13:53 → WSo 13:53
PROVIDERS: ATTEND Obstetrics & Gynecology
DX: O99.891 Other specified diseases and conditions complicating pregnancy (principal); M54.50 Low back pain, unspecified; R51.9 Headache, unspecified; Z3A.35 35 weeks gestation of pregnancy
CPT/HCPCS: 81000; 87088; 99213

== ENCOUNTER → 2023-01-08 | Outpatient (CLI) | payer BC, MEDICAID | LOC: LABNPT 16:06 | PROVIDERS: ATTEND Nurse Practitioner Women's Health | DX: O13.9 Gestational [pregnancy-induced] hypertension without significant proteinuria, unspecified trimester (principal); Z3A.00 Weeks of gestation of pregnancy not specified | CPT/HCPCS: 82570; 84156 ==

== ENCOUNTER 2023-01-14 23:41 | Inpatient (IN) | payer BC, MEDICAID ==
[~2023-01-14] VITALS: Ht 172.7 cm; Wt 116.8 kg
[2023-01-15] VITALS (31 sets, daily range): BP systolic 107–160; BP diastolic 58–84
[2023-01-15 02:03] LABS: CLARITY,URINE CLEAR; COLOR,URINE YELLOW
[2023-01-15 02:04] LABS: BACTERIA,URINE TRACE /HPF; BILIRUBIN,URINE NEGATIVE (NEGATIVE); GLUCOSE, URINE (UA) NEGATIVE (NEGATIVE); KETONES,URINE NEGATIVE (NEGATIVE); LEUKOCYTE ESTERASE ,URINE 1+ (NEGATIVE); NITRITE,URINE NEGATIVE (NEGATIVE); PH,URINE 6.5 (5-9); PROTEIN,URINE NEGATIVE (NEGATIVE); WBC,URINE 0-2 /HPF
[2023-01-15] MEDS ORDERED: D5 LR 1,000 ML IV SOLN 1,000 ML IV ONE (02:04)
[2023-01-15] MEDS ORDERED: LACTATED RINGERS 1,000 ML 500 ML IV PRN (02:30)
[2023-01-15] MEDS ORDERED: MINERAL OIL 30 ML UDC TOP PRN (02:30)
[2023-01-15 02:39] LABS: BASOPHILS % (AUTO) 0 % (0-10); EOSINOPHILS % (AUTO) 0 % (0-10); HEMATOCRIT 34 % (35-52); HEMOGLOBIN 11.4 g/dL (11.5-16.0); LYMPHOCYTES # (AUTO) 2.9 10^3/uL (1.0-4.0); LYMPHOCYTES % (AUTO) 25 % (12-44); MEAN CORPUSCULAR HEMOGLOBIN 28 pg (25-34); MEAN CORPUSCULAR HGB CONC 33 g/dL (32-36); MEAN CORPUSCULAR VOLUME 86 fL (80-99); MEAN PLATELET VOLUME 9.5 fL (9.0-12.2); MONOCYTES # (AUTO) 0.8 10^3/uL (0.0-1.0); MONOCYTES % (AUTO) 7 % (0-12); NEUTROPHILS # (AUTO) 7.7 10^3/uL (1.8-7.8); NEUTROPHILS % (AUTO) 67 % (42-75); PLATELET COUNT 259 10^3/uL (130-400); WHITE BLOOD COUNT 11.5 10^3/uL (4.3-11.0)
[2023-01-15] MEDS: D5 LR 1,000 ML IV SOLN 1,000 ML IV SCH ×2 (02:43→10:20)
[2023-01-15] MEDS ORDERED: CATHETER FLUSH 10 ML SYR IV SCH ×2 (06:00→22:00)
--- NOTE | 2023-01-15 07:20 | History & Physical-OB ---
OB - Chief Complaint & HPI Date/Time Date of Admission: Date of Admission: Jan 15, 2023 at 01:54 Date seen by a Provider: Jan 15, 2023 Time Seen by a Provider: 07:15 Chief Complaint/History OB-Reason for Admission/Chief: Onset of Labor Hx : 3 Hx Para: 2 Expected Date of Delivery: Feb 05, 2023 Gestational Age in Weeks: 37 Gestational Age in Days: 0 Other reason for admission: This 27yo presents to L&D with c/o ctxs Initially she was 1cm and after 2hrs she progressed to 2+/50/-3 with CTXs She denies LOF or VB. Admission Nurse Assessment Rev: Yes History of Labs O+ GBS neg RI Hep B/C neg HIV neg RPR neg Allergies and Home Medications Allergies Coded Allergies: No Known Drug Allergies (Unverified , 12/15/18) Patient Home Medication List Home Medication List Reviewed: Yes Docusate Sodium (Docusate Sodium) 100 Mg Capsule, 100 MG PO BID Prescribed by: Abbie Kruger on 01/16/23 0648 Ferrous Sulfate (Ferosul) 325 Mg (65 Mg Iron) Tablet, 325 MG PO DAILY Prescribed by: Abbie Kruger on 01/16/23 0648 Ibuprofen (Ibu) 600 Mg Tablet, 600 MG PO Q6H Prescribed by: Abbie Kruger on 01/16/23 0648 Kek326/FA/Omega3/Dha/Fish Oil ( Gummies) 1 Each Tab.chew, 2 EACH PO DAILY, (Reported) Entered as Reported by: FADUMO MCKEON on 11/29/18 1019 Last Action: Reviewed OB - History Hx of Present Care: Yes Ultrasounds: Normal mid trimester US Obstetrical Complications: None Medical Complications: None Information Induced Hypertension: No Maternal Gestational Diabetes: No Hemorrhage: No Obstetrical History Hx : 3 Hx Para: 2 Number of Living Children: 2 Hx Total # of Abortions (Spona: 0 Hx Multiple Gestation: No Hx Ectopic : No Hx Stillbirth: No Hx Complication: No Hx Induced Hypertens: Yes (1st ) Hx Maternal Gestational Diabet: No Hx Hemorrhage: No Delivery History Hx Dystocia: No Hx Forceps Assisted Delivery: No Hx Vacuum Extraction Assisted: No Hx Placenta Abnormality: No Hx Distress: No Hx Large For Gestational Age I: No Hx Small for Gestational Age I: No Hx Section: No Hx Vaginal Delivery Post C-Sec: No Hx Blood Disorders: No Adverse Rxn to Tranfusion: No Patient Past Medical History none Social History/Family History Alcohol Use: Denies Use Recreational Drug Use: No 2nd Hand Smoke Exposure: No Immunizations Influenza Vaccine Up-to-Date: Yes; Up-to-Date OB - Admission Exam Physical Exam Vitals: Vital Signs 01/15/23 04:15 Pulse 82 Resp 18 B/P (MAP) 129/76 (93) O2 Delivery Room Air HEENT: NCAT Heart: Rhythm Normal Lungs: Clear Abdomen: Gravid Extremities: Normal Reflexes: Normal Cervical Dilatation: 3cm Effacement: 50% Station: -2 Membranes: Intact Heart Rate: 140's Accelerations: Accelerations Present Decelerations: No Decelerations Short Term Variability: Present Talent Acquisition Administrator Variability: Average (6-25) Contractions on Admission: 6-10 Minutes Apart Intensity: Mild Labs Laboratory Tests Test 01/15/23 00:00 01/15/23 02:15 Range/Units Urine Color YELLOW Urine Clarity CLEAR Urine pH 6.5 5-9 Urine Specific [place] 1.015 L 1.016-1.022 Urine Protein NEGATIVE NEGATIVE Urine Glucose (UA) NEGATIVE NEGATIVE Urine Ketones NEGATIVE NEGATIVE Urine Nitrite NEGATIVE NEGATIVE Urine Bilirubin NEGATIVE NEGATIVE Urine Urobilinogen 0.2 < = 1.0 MG/DL Urine Leukocyte Esterase 1+ H NEGATIVE Urine RBC (Auto) NEGATIVE NEGATIVE Urine RBC NONE /HPF Urine WBC 0-2 /HPF Urine Squamous Epithelial Cells 2-5 /HPF Urine Crystals NONE /LPF Urine Bacteria TRACE /HPF Urine Casts NONE /LPF Urine Mucus SMALL H /LPF Urine Culture Indicated NO White Blood Count 11.5 H 4.3-11.0 10^3/uL Red Blood Count 4.01 3.80-5.11 10^6/uL Hemoglobin 11.4 L 11.5-16.0 g/dL Hematocrit 34 L 35-52 % Mean Corpuscular Volume 86 80-99 fL Mean Corpuscular Hemoglobin 28 25-34 pg Mean Corpuscular Hemoglobin Concent 33 32-36 g/dL Red Cell Distribution Width 12.6 10.0-14.5 % Platelet Count 259 130-400 10^3/uL Mean Platelet Volume 9.5 9.0-12.2 fL Immature Granulocyte % (Auto) 1 % Neutrophils (%) (Auto) 67 42-75 % Lymphocytes (%) (Auto) 25 12-44 % Monocytes (%) (Auto) 7 0-12 % Eosinophils (%) (Auto) 0 0-10 % Basophils (%) (Auto) 0 0-10 % Neutrophils # (Auto) 7.7 1.8-7.8 10^3/uL Lymphocytes # (Auto) 2.9 1.0-4.0 10^3/uL Monocytes # (Auto) 0.8 0.0-1.0 10^3/uL Eosinophils # (Auto) 0.0 0.0-0.3 10^3/uL Basophils # (Auto) 0.0 0.0-0.1 10^3/uL Immature Granulocyte # (Auto) 0.1 0.0-0.1 10^3/uL Syphilis Total Antibody Negative Negative OB - Assessment/Plan/Diagnosis Assessment Assessment: active labor Admission Dx IUP @37wk Active labor Admission Status: Inpatient Order (span 2 midnights) Reason for Inpatient Admission: IUP @ 37wk Active labor Plan Plan: Expectant Management Copy Copies To 1: ASCENCION JOHNSON VICTORIA A DO Jan 15, 2023 07:20
[2023-01-15] MEDS ORDERED: OXYTOCIN DRIP PRE-MIX 500 ML IV SCH ×2 (11:00→17:00)
[2023-01-15] MEDS ORDERED: ONDANSETRON INJECTION 4 MG/2 ML (SDV) ONE (14:42)
[2023-01-15] MEDS ORDERED: LIDOCAINE 1% INJ 10 ML VIAL ONE (14:51)
[2023-01-15] MEDS ORDERED: ONDANSETRON INJECTION 4 MG/2 ML (SDV) IVP PRN (15:00)
[2023-01-15] MEDS ORDERED: BENZOCAINE/MENTHOL (DERMOPLAST) 56 ML CAN TP PRN (17:00)
[2023-01-15] MEDS ORDERED: NALOXONE 0.4 MG/ML 1 ML VIAL IV PRN (17:00)
[2023-01-15] MEDS ORDERED: Tetanus/Diphtheria/Pertussis (Acell) ADULT Vaccine 0.5 ML IM ONE (17:00)
[2023-01-15] MEDS ORDERED: MEASLES, MUMPS, RUBELLA VACCINE (MMR) SQ ONE (17:00)
[2023-01-15] MEDS ORDERED: WITCH HAZEL(TUCKS) 40 EA JAR TOP PRN (17:00)
--- NOTE | 2023-01-15 17:02 | OB Labor & Delivery Record ---
Vag Delivery Note Vag Delivery Note Date of Delivery: 01/15/23 Preoperative Diagnosis: Edward Cherry is a (27 /Para 3 / 2,Gestational Age (wks)37with [ ] Postoperative Diagnosis: Same Surgeon: JARED DALEY Sewer Pipe Layer: [] Anesthesia: pudendal Delivery Type: Findings: [] Viable male , apgars 8/9 , weight [] Lacerations: none Intact placenta with 3 vessel cord. No nuchal cord, body cord or shoulder dystocia Estimated Blood Loss: [] ml Complications: None Condition: Stable Description of Procedure: The patient is a 27 year old female who presented at 37wks . She was admitted and informed consent was obtained. Her labor course was uneventful . She progressed to complete dilatation and began to push. She was then set up for delivery. She did not have an epidural and was getting uncomfortable so a pudendal block was administered after d/w the pt. The 's head was delivered atraumatically in the BUNNY position. The shoulders and remainder of the 's body were then delivered without difficulty. Upon delivery, the infant was vigorous and placed on maternal chest and the mouth and nares were bulb suctioned. After a 60second delay the cord was doubly clamped and cut and the infant remained on maternal chest. An intact placenta with 3- vessel cord delivered via Leonela and there was found to be minimal bleeding.~ Vigorous fundal massage was performed and the fundus was found to be firm. IV oxytocin was given. Examination of the vagina and perineum revealed to be intact. All sponge, instrument and needle counts were correct. Mom and baby were both in stable condition in the labor suite. Vitals - Labs Vital Signs - I&O Vital Signs Date Time Temp Pulse Resp B/P (MAP) Pulse Ox O2 Delivery O2 Flow Rate FiO2 01/15/23 15:15 36.8 77 18 131/71 (91) Room Air 01/15/23 15:00 80 18 143/79 (100) Room Air 01/15/23 14:45 90 18 134/77 (96) Room Air 01/15/23 14:30 72 18 120/69 (86) Room Air 01/15/23 14:15 83 18 136/84 (101) Room Air 01/15/23 14:00 78 18 130/70 (90) Room Air 01/15/23 13:45 94 18 123/70 (87) Room Air 01/15/23 13:30 36.5 78 18 116/59 (78) 01/15/23 13:15 36.5 86 18 110/73 (85) Room Air 01/15/23 12:30 75 18 127/74 (91) Room Air 01/15/23 12:15 75 18 127/80 (96) Room Air 01/15/23 12:00 36.3 75 18 134/81 (98) Room Air 01/15/23 11:45 80 18 130/74 (92) Room Air 01/15/23 11:30 91 18 130/74 (92) Room Air 01/15/23 11:14 36.5 83 18 130/80 (97) Room Air 01/15/23 10:17 37.0 01/15/23 08:30 36.3 78 18 128/77 (94) 100 Room Air 01/15/23 04:15 82 18 129/76 (93) Room Air 01/15/23 02:04 81 18 121/69 (86) Room Air 01/15/23 00:08 36.6 79 18 124/72 98 Room Air 01/15/23 00:08 36.6 79 18 124/72 (89) 98 Room Air Labs Laboratory Tests 01/15/23 00:00: Urine Color YELLOW, Urine Clarity CLEAR, Urine pH 6.5, Urine Specific [place] 1.015L, Urine Protein NEGATIVE, Urine Glucose (UA) NEGATIVE, Urine Ketones NEGATIVE, Urine Nitrite NEGATIVE, Urine Bilirubin NEGATIVE, Urine Urobilinogen 0.2, Urine Leukocyte Esterase 1+H, Urine RBC (Auto) NEGATIVE, Urine RBC NONE, Urine WBC 0-2, Urine Squamous Epithelial Cells 2-5, Urine Crystals NONE, Urine Bacteria TRACE, Urine Casts NONE, Urine Mucus SMALLH, Urine Culture Indicated NO 01/15/23 02:15: White Blood Count 11.5H, Red Blood Count 4.01, Hemoglobin 11.4L, Hematocrit 34L, Mean Corpuscular Volume 86, Mean Corpuscular Hemoglobin 28, Mean Corpuscular He moglobin Concent 33, Red Cell Distribution Width 12.6, Platelet Count 259, Mean Platelet Volume 9.5, Immature Granulocyte % (Auto) 1, Neutrophils (%) (Auto) 67, Lymphocytes (%) (Auto) 25, Monocytes (%) (Auto) 7, Eosinophils (%) (Auto) 0, Basophils (%) (Auto) 0, Neutrophils # (Auto) 7.7, Lymphocytes # (Auto) 2.9, Monocytes # (Auto) 0.8, Eosinophils # (Auto) 0.0, Basophils # (Auto) 0.0, Immature Granulocyte # (Auto) 0.1, Syphilis Total Antibody Negative JARED DALEY DO Jan 15, 2023 17:02
[2023-01-15] MEDS: ACETAMINOPHEN 500 MG TABLET PO SCH (18:02)
[2023-01-15] MEDS: IBUPROFEN 600 MG TABLET PO SCH (18:35)
[2023-01-16 00:09] VITALS: BP 125/75
[2023-01-16] MEDS: DOCUSATE SODIUM 100 MG CAPSULE PO SCH ×2 (00:10→08:46)
[2023-01-16] MEDS: ACETAMINOPHEN 500 MG TABLET PO SCH ×3 (00:22→08:47)
[2023-01-16] MEDS: IBUPROFEN 600 MG TABLET PO SCH ×2 (00:22→05:07)
[2023-01-16 03:34] VITALS: BP 119/66
[2023-01-16 05:35] LABS: BASOPHILS % (AUTO) 0 % (0-10); EOSINOPHILS % (AUTO) 0 % (0-10); HEMATOCRIT 33 % (35-52); HEMOGLOBIN 10.7 g/dL (11.5-16.0); LYMPHOCYTES # (AUTO) 2.5 10^3/uL (1.0-4.0); LYMPHOCYTES % (AUTO) 16 % (12-44); MEAN CORPUSCULAR HEMOGLOBIN 28 pg (25-34); MEAN CORPUSCULAR HGB CONC 33 g/dL (32-36); MEAN CORPUSCULAR VOLUME 85 fL (80-99); MEAN PLATELET VOLUME 9.8 fL (9.0-12.2); MONOCYTES # (AUTO) 1.3 10^3/uL (0.0-1.0); MONOCYTES % (AUTO) 8 % (0-12); NEUTROPHILS # (AUTO) 11.6 10^3/uL (1.8-7.8); NEUTROPHILS % (AUTO) 75 % (42-75); PLATELET COUNT 237 10^3/uL (130-400); WHITE BLOOD COUNT 15.5 10^3/uL (4.3-11.0)
[2023-01-16] MEDS ORDERED: FERR325T24 PO (06:48)
[2023-01-16] MEDS ORDERED: IBUP-844 PO (06:48)
[2023-01-16] MEDS ORDERED: DOCU100C37 PO (06:48)
--- NOTE | 2023-01-16 06:50 | Discharge Summary ---
Discharge Summary Hospital Course Problems Reviewed?: Yes Hospital Course Date of Admission: Jan 15, 2023 at 01:54 Admission Diagnosis : [facility] Date of Discharge: 01/16/23 Discharge Diagnosis: Status post vaginal delivery Hospital Course: Patient was admitted for active labor delivered a liveborn did well and was discharged home with pain medications and instructions. Labs and Pending Lab Test: Laboratory Tests 01/16/23 05:18: White Blood Count 15.5H, Red Blood Count 3.84, Hemoglobin 10.7L, Hematocrit 33L, Mean Corpuscular Volume 85, Mean Corpuscular Hemoglobin 28, Mean Corpuscular Hemoglobin Concent 33, Red Cell Distribution Width 12.6, Platelet Count 237, Mean Platelet Volume 9.8, Immature Granulocyte % (Auto) 1, Neutrophils (%) (Auto) 75, Lymphocytes (%) (Auto) 16, Monocytes (%) (Auto) 8, Eosinophils (%) (Auto) 0, Basophils (%) (Auto) 0, Neutrophils # (Auto) 11.6H, Lymphocytes # (Auto) 2.5, Monocytes # (Auto) 1.3H, Eosinophils # (Auto) 0.0, Basophils # (Auto) 0.0, Immature Granulocyte # (Auto) 0.1 Home Meds Active Reported Gummies (Pna832/FA/Omega3/Dha/Fish Oil) 1 Each Tab.chew 2 Each PO DAILY Activity: Activity as Tolerated Driving Instructions: You May Drive NO SMOKING: NO SMOKING Nothing Inside Vagina: No Douching, No [place], No Tampons Discharge Diet: Regular Diet Symptoms to Report to : Pain Increased, Fever Over 101 Degrees F, Vaginal Bleeding Increase For Any Problems or Questions: Contact Your Physician Discharge Physical Examination Allergies: Coded Allergies: No Known Drug Allergies (Unverified , 12/15/18) Vitals & I&Os Vital Signs Date Time Temp Pulse Resp B/P (MAP) Pulse Ox O2 Delivery O2 Flow Rate FiO2 01/16/23 03:34 36.6 75 18 119/66 (83) 98 Room Air Discharge Summary Date of Admission Jan 15, 2023 at 01:54 Date of Discharge Discharge Date: Jan 16, 2023 Admission Diagnosis IUP at 37 weeks active labor Supervisory-Addendum Brief Verification & Attestation Participated in pt care: history, MDM, physical Personally performed: exam, history, MDM, supervision of care Care discussed with: Medical Student Procedures: n/a Results interpretation: Verified all documentation I saw and examined this patient personally JARED DALEY DO Jan 16, 2023 06:50
--- NOTE | 2023-01-16 06:52 | Postpartum Progress Note ---
Note Note Day # 1 Subjective: Patient is without complaints. Ambulating, voiding. Tolerating a regular diet without nausea or vomiting. Normal lochia. Pain is well controlled with oral pain medications. Formula feeding. [] Objective: VSS AF Physical Exam: General - Alert and oriented, no apparent distress Breast symmetrical no erythema edema or engorgement Abdomen - Soft, appropriately tender to palpation, non-distended, fundus firm at umbilicus Lochia minimal Extremities - no edema, negative Julian's bilaterally Assessment: [] post- day #1, status post [] vaginal delivery. Recovering well, hemodynamically stable Plan: Routine care. Encourage breast feeding. Encourage ambulation. Ferrous sulfate supplementation. Plan for discharge [] Vitals - Labs Vital Signs - I&O Vital Signs Date Time Temp Pulse Resp B/P (MAP) Pulse Ox O2 Delivery O2 Flow Rate FiO2 01/16/23 03:34 36.6 75 18 119/66 (83) 98 Room Air 01/16/23 00:09 36.6 89 16 125/75 (92) 97 Room Air 01/15/23 19:43 36.7 86 18 112/58 (76) 96 Room Air 01/15/23 18:12 88 18 132/77 (95) Room Air 01/15/23 18:02 37.1 01/15/23 17:57 76 18 127/80 (96) Room Air 01/15/23 17:42 78 18 116/73 (87) Room Air 01/15/23 17:28 83 18 107/64 (78) Room Air 01/15/23 17:13 82 18 148/63 (91) Room Air 01/15/23 16:53 95 18 160/70 (100) 98 Room Air 01/15/23 16:42 85 18 128/66 (86) Room Air 01/15/23 16:28 36.6 85 18 132/62 (85) 98 Room Air 01/15/23 16:12 88 18 129/71 (90) Room Air 01/15/23 16:00 78 18 135/69 (91) Room Air 01/15/23 15:45 97 18 131/79 (96) Room Air 01/15/23 15:15 36.8 77 18 131/71 (91) Room Air 01/15/23 15:00 80 18 143/79 (100) Room Air 01/15/23 14:45 90 18 134/77 (96) Room Air 01/15/23 14:30 72 18 120/69 (86) Room Air 01/15/23 14:15 83 18 136/84 (101) Room Air 01/15/23 14:00 78 18 130/70 (90) Room Air 01/15/23 13:45 94 18 123/70 (87) Room Air 01/15/23 13:30 36.5 78 18 116/59 (78) 01/15/23 13:15 36.5 86 18 110/73 (85) Room Air 01/15/23 12:30 75 18 127/74 (91) Room Air 01/15/23 12:15 75 18 127/80 (96) Room Air 01/15/23 12:00 36.3 75 18 134/81 (98) Room Air 01/15/23 11:45 80 18 130/74 (92) Room Air 01/15/23 11:30 91 18 130/74 (92) Room Air 01/15/23 11:14 36.5 83 18 130/80 (97) Room Air 01/15/23 10:17 37.0 01/15/23 08:30 36.3 78 18 128/77 (94) 100 Room Air I & O 01/16/23 07:00 Intake Total 500 ml Balance 500 ml Labs Laboratory Tests 01/16/23 05:18: White Blood Count 15.5H, Red Blood Count 3.84, Hemoglobin 10.7L, Hematocrit 33L, Mean Corpuscular Volume 85, Mean Corpuscular Hemoglobin 28, Mean Corpuscular Hemoglobin Concent 33, Red Cell Distribution Width 12.6, Platelet Count 237, Mean Platelet Volume 9.8, Immature Granulocyte % (Auto) 1, Neutrophils (%) (Auto) 75, Lymphocytes (%) (Auto) 16, Monocytes (%) (Auto) 8, Eosinophils (%) (Auto) 0, Basophils (%) (Auto) 0, Neutrophils # (Auto) 11.6H, Lymphocytes # (Auto) 2.5, Monocytes # (Auto) 1.3H, Eosinophils # (Auto) 0.0, Basophils # (Auto) 0.0, Immature Granulocyte # (Auto) 0.1 JARED DALEY DO Jan 16, 2023 06:52
[2023-01-16] MEDS ORDERED: FLUO20CA48 PO (07:17)
[2023-01-16 07:38] VITALS: BP 131/82
[2023-01-16] MEDS ORDERED: FLUoxetine 20 MG CAPSULE PO SCH (09:00)
[2023-01-16] MEDS ORDERED: FERROUS SULFATE 325 MG (IRON) TABLET PO SCH (09:00)
[2023-01-16 11:45] VITALS: BP 131/82
== END 2023-01-16 12:25 | disposition home or self-care (01) | DRG 807 ==
LOC: WSo 23:41 → LDRP 23:41 → WSo 01-15 01:53 → LDRP 01-15 01:54
PROVIDERS: ADMIT Obstetrics & Gynecology; ATTEND Obstetrics & Gynecology
PROC: 10E0XZZ Delivery of Products of Conception, External Approach (ICD-10-PCS; principal; 2023-01-15)
DX: O80 Encounter for full-term uncomplicated delivery (principal); Z37.0 Single live birth; Z3A.37 37 weeks gestation of pregnancy; Z28.310 Unvaccinated for COVID-19
CPT/HCPCS: 36415; 81000; 85025; 86780; 86850; 86900; 86901; 99213